=== PATIENT | male | born 1980 | race Caucasian/White ===

== ENCOUNTER → 2016-10-05 | Outpatient (CLI) | payer BC ==
--- NOTE | 2016-10-05 08:19 | DIAGNOSTIC IMAGING REPORT ---
MRI left ankle LEFT LOWER EXT JOINT WITHOUT CLINICAL HISTORY: LEFT ANKLE PAIN pain TECHNIQUE: Multiaxial MRI acquisition COMPARISON STUDY: None FINDINGS: Subtle increase in signal the central aspect of the Achilles tendon with a trace amount of surrounding edema. This is also associated with a trace amount of bone marrow edema of the posterior lateral aspect of the calcaneus. This presumably is a stress related phenomenon. Signal characteristics of all remaining osseous structures are unremarkable. Major collateral ligament structures are intact. There is no significant joint effusion. Bony alignment is anatomic. Structures the plantar fascia appear unremarkable. IMPRESSION: 1. Mild Achilles tendinopathy. 2. Mild reactive bone marrow edema posterior lateral aspect of the calcaneus. 3. Study is otherwise negative Electronically signed by: Raji Chadwick M.D. 10/05/2016 8:18 AM Dictated Date/Time: 10/05/2016 8:08 AM
== END | disposition home or self-care (01) ==
LOC: C.MRIBC 06:28
PROVIDERS: ATTEND Orthopaedic Surgery
DX: M25.572 Pain in left ankle and joints of left foot (principal)

== ENCOUNTER → 2018-02-17 | Outpatient (CLI) | payer BC ==
--- NOTE | 2018-02-17 07:53 | DIAGNOSTIC IMAGING REPORT ---
R KNEE 1 OR 2 VIEWS ROUTINE CLINICAL HISTORY: M25.561 COMPARISON: None. DISCUSSION: The bones and joint spaces appear intact. There is no evidence of fracture, dislocation or bony disease. There is no evidence for soft tissue swelling. IMPRESSION: Negative study. The above report was generated using voice recognition software. It may contain grammatical, syntax or spelling errors. Electronically signed by: Raji Chadwick M.D. 02/17/2018 7:51 AM Dictated Date/Time: 02/17/2018 7:23 AM
== END | disposition home or self-care (01) ==
LOC: C.RAD 06:57
PROVIDERS: ATTEND Chiropractor
DX: M25.561 Pain in right knee (principal); M25.461 Effusion, right knee

== ENCOUNTER → 2018-03-03 | Outpatient (CLI) | payer BC ==
--- NOTE | 2018-03-03 07:37 | DIAGNOSTIC IMAGING REPORT ---
RIGHT KNEE MRI HISTORY: Right knee pain. COMPARISON STUDY: Right knee 02/17/2018. TECHNIQUE: Multiplanar multisequence MRI of the right knee was performed according to standard department protocol without the use of contrast. FINDINGS: Menisci: The medial and lateral menisci are intact. Ligaments: The PCL, MCL, and LCL are intact. There is a multiseptated cyst lying posterior to and abutting the ACL. This measures approximately 3.3 x 1.1 cm. This cyst appears to arise from from the ACL fibers best seen on axial image 18 of 36.. Therefore, this is consistent with an ACL ganglion cyst. No evidence for acute or full-thickness ACL tear. Extensor mechanism: The quadriceps tendon and patellar ligament are intact. Articular cartilage and bone: Mild cartilage thinning within the central weightbearing portion of the medial femoral condyle. There is also mild corresponding and a cartilage fissure within the mid trochlea. Normal marrow signal intensity seen throughout the visualized osseous structures. No fracture or dislocation. Joint effusion: Trace. Soft tissues: No significant popliteal cyst. IMPRESSION: 1. ACL ganglion cyst measuring 3.3 x 1.1 cm. 2. Trace knee effusion. 3. Mild chondromalacia. Electronically signed by: Stanley Fontaine M.D. 03/03/2018 7:35 AM Dictated Date/Time: 03/03/2018 7:24 AM
== END | disposition home or self-care (01) ==
LOC: C.MRI 06:04
PROVIDERS: ATTEND Orthopaedic Surgery
DX: S83.249A Other tear of medial meniscus, current injury, unspecified knee, initial encounter (principal); X58.XXXA Exposure to other specified factors, initial encounter; M25.562 Pain in left knee; M67.461 Ganglion, right knee

== ENCOUNTER 2021-11-10 03:06 | Observation (INO) ==
[2021-11-10] MEDS ORDERED: NITROGLYCERIN SL 0.4 MG/TAB TAB ONE (03:16)
[2021-11-10] MEDS ORDERED: NITROGLYCERIN SL 0.4 MG/TAB TAB SL PRN ×2 (03:16→07:59)
--- NOTE | 2021-11-10 03:22 | Emergency Department Note ---
History of Present Illness General Chief complaint: Chest Pain Stated complaint: SEIZURE, CHEST PAIN, Time Seen by Provider: 11/10/21 03:15 Source: patient and EMS Home Medications Medication Instructions Recorded Confirmed Type None (Patient States No Home Meds) #0 05/03/11 History Allergies Allergy/AdvReac Type Severity Reaction Status Date / Time No Known Allergies Allergy Unverified 01/11/13 09:38 Past Med/Surg History Social History Smoking Status: Never smoker Feels Safe at Home: Yes Review of Systems A total of 10 systems reviewed and were otherwise negative Constitutional: no fever Respiratory: + dyspnea; no cough Cardiovascular: + chest pain and + radiating jaw, neck or arm pain Neurologic: + tingling and + paresthesia Physical Exam Vital Signs Vital Signs - 24 hr 11/10/21 03:00 11/10/21 03:27 11/10/21 03:28 Temperature 36.6 C Temperature Source Oral Pulse Rate 85 Pulse Rate [Right Finger] 82 Respiratory Rate 16 18 Blood Pressure 138/84 Blood Pressure [Right Arm] 132/84 Blood Pressure Mean 102 Blood Pressure Mean [Right Arm] 100 Blood Pressure Position Sitting Blood Pressure Position [Right Arm] Sitting Pulse Oximetry 97 97 97 Oxygen Delivery Method Room Air Room Air Room Air Sepsis Recent Fever Within 48 Hours No Sepsis New/Unexplained Change in Mental Status No Sepsis Action Taken by Nursing No Action Required 11/10/21 04:30 Temperature Temperature Source Pulse Rate Pulse Rate [Right Finger] 77 Respiratory Rate 18 Blood Pressure Blood Pressure [Right Arm] 128/83 Blood Pressure Mean Blood Pressure Mean [Right Arm] 98 Blood Pressure Position Blood Pressure Position [Right Arm] Lying Pulse Oximetry 98 Oxygen Delivery Method Room Air Sepsis Recent Fever Within 48 Hours Sepsis New/Unexplained Change in Mental Status Sepsis Action Taken by Nursing VITAL SIGNS - Vital signs and nursing notes were reviewed. GENERAL -41-year-old male appearing his stated age who is in no acute distress. Communicates well with provider and answers questions appropriately. SKIN - Without rashes. HEAD - NC/AT. EYES - PERRL with EOMI bilaterally. Sclera anicteric. Palpebral conjunctiva pink and moist with no injection noted. EARS - No deformities of external structures noted on gross examination heladio aterally. NOSE - Midline and without cyanosis. No epistaxis or purulent drainage noted. Septum midline without deviation or septal hematoma noted. MOUTH/OROPHARYNX - Without perioral cyanosis. Buccal mucosa pink and moist and without leukoplakia. Tongue midline with equal elevation of palate bilaterally. No tonsillar hypertrophy, erythema, or exudates noted. [] dentition noted. NECK - Neck with FROM. Supple to palpation. LUNGS - Chest wall symmetric without accessory muscle use, intercostals r etractions, or central cyanosis. Normal vesicular breath sounds CTA B/L. No wheezes, rales, or rhonchi appreciated. CARDIAC - RRR with S1/S2. No murmur, rubs, or gallops appreciated. ABDOMEN - Abdominal contour soft without pulsations or visible masses. BS normoactive all four quadrants. No tenderness, palpable masses, hepatosplenomegaly, or ascites noted. EXTREMITIES - No clubbing or peripheral cyanosis. No pretibial edema present. . +5/5 strength noted in UE/LE bilaterally. NEUROLOGIC - Cranial nerves II through XII grossly intact. GCS 15, NIH 0 PSYCH - A&Ox3 and cooperates fully with examiner. Pt is very pleasant and interacts well with examiner. Course Administered Medications Nitroglycerin (Nitroglycerin Sl 0.4 Mg/Tab Tab) 0.4 mg SL UD PRN PRN Reason: Chest Pain Stop: 12/10/21 03:15 Last Admin: 11/10/21 03:19 Dose: 0.4 mg Documented by: [id number] Discontinued Medications Nitroglycerin (Nitroglycerin Sl 0.4 Mg/Tab Tab) Confirm Administered Dose 0.4 mg .ROUTE .STK-MED ONE Stop: 11/10/21 03:17 Last Admin: 11/10/21 03:18 Dose: Not Given Documented by: [id number] Medical Decision Making Medical Records Attestation: I reviewed the patient's medical records. Home Medications Current Medication List: was personally reviewed by me Laboratory Data Attestation: I reviewed the patient's lab results. Result diagrams: 11/10/21 03:18 11/10/21 03:18 Lab Results 11/10/21 11/10/21 11/10/21 Range/Units 03:18 03:18 03:18 WBC 12.19 H (4.8-10.8) K/uL RBC 5.38 (4.7-6.1) M/uL Hgb 15.5 (14.0-18.0) g/dL POC Hgb (14.0-18.0) g/dl Hct 46.5 (42-52) % POC Hct (42-52) % MCV 86.4 (80-100) fL MCH 28.8 (25-34) pg MCHC 33.3 (32-36) g/dL RDW Std Deviation 42.2 (36.4-46.3) fL RDW Coeff of Tyson 13.3 (11.5-14.5) % Plt Count 282 (130-400) K/uL MPV 10.3 (7.4-10.4) fL Immature Gran % (Auto) 0.3 % Neut % (Auto) 77.7 % Lymph % (Auto) 9.8 % [place] % (Auto) 8.5 % Eos % (Auto) 3.5 % Baso % (Auto) 0.2 % Neut # (Auto) 9.45 H (1.4-6.5) K/uL Lymph # (Auto) 1.20 (1.2-3.4) K/uL [place] # (Auto) 1.04 H (0.11-0.59) K/uL Eos # (Auto) 0.43 (0-0.5) K/uL Baso # (Auto) 0.03 (0-0.2) K/uL Immature Gran # (Auto) 0.04 H (0.00-0.02) K/uL PT (9.0-12.0) Seconds INR (0.9-1.1) APTT (21.0-31.0) Seconds PTT Ratio D-Dimer (0-500) ug/L FEU POC Sodium (135-144) mmol/L Sodium 137 (136-145) mmol/L POC Potassium (3.3-5.0) mmol/L Potassium 4.0 (3.5-5.1) mmol/L POC Chloride (101-112) mmol/L Chloride 104 (98-107) mmol/L Carbon Dioxide 27 (21-32) mmol/L POC Total CO2 (24-31) mmol/L Anion Gap 6 (3-11) POC Anion Gap (16-25) mmol/L POC BUN (7-18) mg/dl BUN 11 (6-23) mg/dl Creatinine 1.10 (0.6-1.4) mg/dl POC Creatinine (0.6-1.3) mg/dl Est Cr Clr Drug Dosing 118.9 ml/min Est GFR ( Amer) 95.5 ml/min Est GFR (Non-Af Amer) 82.4 ml/min BUN/Creatinine Ratio 10.0 (10-20) Glucose 98 (70-99(Fasting)) mg/dl POC Glucose (other) (70-99) mg/dl Calcium 9.1 (8.5-10.1) mg/dl POC Ioniz Calcium Jm (1.12-1.32) mmol/l Total Bilirubin 0.5 (0.2-1.0) mg/dl AST 14 (13-39) U/L ALT 17 (7-52) U/L Alkaline Phosphatase 64 (34-104) U/L Troponin I High Sens 3.2 (0-20) pg/ml Total Protein 6.6 (6.0-8.3) gm/dl Albumin 4.1 (3.4-5.0) gm/dl Globulin 2.5 (2.5-4.0) gm/dl Albumin/Globulin Ratio 1.6 (0.9-2) SARS-CoV-2, RNA, NAAT (NEGATIVE) 11/10/21 11/10/21 11/10/21 Range/Units 03:18 03:22 03:43 WBC (4.8-10.8) K/uL RBC (4.7-6.1) M/uL Hgb (14.0-18.0) g/dL POC Hgb 15.3 (14.0-18.0) g/dl Hct (42-52) % POC Hct 45 (42-52) % MCV (80-100) fL MCH (25-34) pg MCHC (32-36) g/dL RDW Std Deviation (36.4-46.3) fL RDW Coeff of Tyson (11.5-14.5) % Plt Count (130-400) K/uL MPV (7.4-10.4) fL Immature Gran % (Auto) % Neut % (Auto) % Lymph % (Auto) % [place] % (Auto) % Eos % (Auto) % Baso % (Auto) % Neut # (Auto) (1.4-6.5) K/uL Lymph # (Auto) (1.2-3.4) K/uL [place] # (Auto) (0.11-0.59) K/uL Eos # (Auto) (0-0.5) K/uL Baso # (Auto) (0-0.2) K/uL Immature Gran # (Auto) (0.00-0.02) K/uL PT 11.0 (9.0-12.0) Seconds INR 1.0 (0.9-1.1) APTT 25.3 (21.0-31.0) Seconds PTT Ratio 0.9 D-Dimer 240 (0-500) ug/L FEU POC Sodium 140 (135-144) mmol/L Sodium (136-145) mmol/L POC Potassium 4.0 (3.3-5.0) mmol/L Potassium (3.5-5.1) mmol/L POC Chloride 102 (101-112) mmol/L Chloride (98-107) mmol/L Carbon Dioxide (21-32) mmol/L POC Total CO2 26 (24-31) mmol/L Anion Gap (3-11) POC Anion Gap 17.0 (16-25) mmol/L POC BUN 11 (7-18) mg/dl BUN (6-23) mg/dl Creatinine (0.6-1.4) mg/dl POC Creatinine 1.0 (0.6-1.3) mg/dl Est Cr Clr Drug Dosing ml/min Est GFR ( Amer) ml/min Est GFR (Non-Af Amer) ml/min BUN/Creatinine Ratio (10-20) Glucose (70-99(Fasting)) mg/dl POC Glucose (other) 101 H (70-99) mg/dl Calcium (8.5-10.1) mg/dl POC Ioniz Calcium Jm 1.20 (1.12-1.32) mmol/l Total Bilirubin (0.2-1.0) mg/dl AST (13-39) U/L ALT (7-52) U/L Alkaline Phosphatase (34-104) U/L Troponin I High Sens (0-20) pg/ml Total Protein (6.0-8.3) gm/dl Albumin (3.4-5.0) gm/dl Globulin (2.5-4.0) gm/dl Albumin/Globulin Ratio (0.9-2) SARS-CoV-2, RNA, NAAT NEGATIVE (NEGATIVE) Imaging Data Radiologist's Impression: CT HEAD: No prior examfor comparison. No ICH, mass effect or edema. No evidence of acute cortical stroke. Visualized sinuses and mastoid air cells are clear. No skull fracture. Radiologist: Patrizia Reyez MD ECG Data Attestation: I personally reviewed and interpreted this ECG as follows: Additional Comments: EKG interpreted by me normal sinus rhythm rate of 82 age-indeterminate inferior wall [place] there is a nonspecific ST-T change and lead to V3 there is no obvious reciprocal changes there is no significant ST segment elevation or depression there is a normal axis EKG #2 after nitro was given there is nonspecific ST-T change and lead to there is Q waves in lead III and aVF there is no obvious ST segment depression or reciprocal changes his rate of 75 normal axis MDM Narrative Call decision making differential diagnosis includes acute coronary syndrome angina unstable angina acute [place] acute seizure acute intracranial process, plan is to check labs EKG CT chest x-ray Impression & Plan Chest pain, Dizziness, Seizure-like activity Discharge Plan Visit Data Chief Complaint: Chest Pain Stated Complaint: SEIZURE, CHEST PAIN, ED Provider: Ulysses Page Discharge Problem: Chest pain, Dizziness, Seizure-like activity Patient Disposition: Being Evaluated by Hospitalist Forms Stand Alone Forms: My [employer] Prescriptions Prescriptions: No Action None (Patient States No Home Meds) . Qty: 0 RF: 0 Referrals Referrals: Timothy Schmitt MD [Physician] -
[2021-11-10 03:37] LABS: Basophils # (auto) 0.03 K/uL (0-0.2); Basophils % (auto) 0.2 %; Eosinophils # (auto) 0.43 K/uL (0-0.5); Eosinophils % (auto) 3.5 %; Hematocrit (blood only) 46.5 % (42-52); Hemoglobin 15.5 g/dL (14.0-18.0); Immature Granulocytes # (auto) 0.04 K/uL (0.00-0.02); Immature Granulocytes % (auto) 0.3 %; Lymphocytes % (auto) 9.8 %; Mean Corpuscular Hemoglobin 28.8 pg (25-34); Mean Corpuscular Hgb Conc 33.3 g/dL (32-36); Mean Corpuscular Volume 86.4 fL (80-100); Mean Platelet Volume 10.3 fL (7.4-10.4); Monocytes # (auto) 1.04 K/uL (0.11-0.59); Monocytes % (auto) 8.5 %; Neutrophils # (auto) 9.45 K/uL (1.4-6.5); Neutrophils % (auto) 77.7 %; Platelet Count 282 K/uL (130-400); RDW Coefficient of Variation 13.3 % (11.5-14.5); RDW Standard Deviation 42.2 fL (36.4-46.3); Red Blood Count 5.38 M/uL (4.7-6.1); White Blood Count 12.19 K/uL (4.8-10.8)
[2021-11-10 03:39] LABS: iSTAT Hemoglobin 15.3 g/dl (14.0-18.0); iSTAT Ionized Calcium 1.2 mmol/l (1.12-1.32)
[2021-11-10 03:47] LABS: D Dimer 240 ug/L FEU (0-500); Partial Thromboplastin Ratio 0.9; Partial Thromboplastin Time 25.3 Seconds (21.0-31.0)
[2021-11-10 03:59] LABS: Albumin Globulin Ratio 1.6 (0.9-2); Albumin Level 4.1 gm/dl (3.4-5.0); Bilirubin,Total 0.5 mg/dl (0.2-1.0); Calcium 9.1 mg/dl (8.5-10.1); Creatinine Clr Calc Pharmacy 118.9 ml/min; Est GFR (African American) 95.5 ml/min; Est GFR (Non-African American) 82.4 ml/min; Globulin 2.5 gm/dl (2.5-4.0); Total Protein 6.6 gm/dl (6.0-8.3)
[2021-11-10] MEDS ORDERED: ASPIRIN 81 MG CHEW PO STA (04:54)
[2021-11-10] MEDS ORDERED: OPTIRAY 320 125ml IV ONE ×2 (05:57→12:26)
--- NOTE | 2021-11-10 06:01 | History & Physical Report ---
Date of Service November 10, 2021 Assessment & Plan (1) Chest pain: Plan: 41yo male with no significant past medical history presenting with several days of chest pain, acutely worsening this evening with associated SOB/diaphoresis/nausea as well as seizure-like episode with residual left sided weakness. Patient has family history of premature CAD, otherwise no significant risk factors for CAD. HS-troponin at time 0 within normal limits at 3.2, repeat 2h troponin pending. EKG with possible old inferior [place]. -Telemetry monitoring -Continue to trend troponin q 6 hours -Check HgbA1C -Check lipid panel -Continue ASA 81mg daily for now -Check 2D echo -Nitro PRN -Morphine PRN (2) Seizure-like activity: Plan: Witnesses report patient having difficulty speaking as well as repetitive lip- smacking and right hand movement. Possible post-ictal confusion, patient repeating himself and somewhat slow to respond. Possible Tyler paralysis with residual left sided weakness. -Maintain seizure precautions -Check MRI brain -Check Mg, PO4 and TSH -Neurology consultation appreciated -Consider EEG (3) Left-sided weakness: Plan: Patient with left sided weakness. Ddx to include TIA, CVA, possible seizure with Tyler paralysis. CT head negative for acute hemorrhage -Check CTA Head and Neck -Check MRI brain -Check 2D echo -Neuro checks, NIHSS per protocol -Dysphagia screening per protocol -PT/OT evaluation appreciated -Neurology consultation appreciated Plan: F/E/N -Heplock. Check Mg and PO4 and replete if needed. Heart healthy diet as tolerated Ppx - Low risk for DVT Code -Full per discussion with patient Dispo - Observation to PCU for continued workup History of Present Illness Chief Complaint: chest pain, left sided weakness Primary Care Provider: NO PCP Thad Ruiz is a 41yo male with no significant past medical history presenting with left sided chest pain and possible seizure activity. Patient reports intermittent left sided chest pain with radiation to the jaw, left arm and between the shoulder blades for the last several days. Pain is non-exertional. Reproducible with movement and position. Also with headache for the last two days. Patient works as a [employer] He was at work tonight and didn't feel well. Several of his colleagues said he looked pale and wasn't acting himself. He had ongoing chest pain with left arm weakness as well as generalized weakness and fatigue. Around 01:[address] when his chest pain worsened - sharp in nature, 10/10 in severity with radiation to his jaw, left arm and bilateral shoulders. He had associated diaphoresis, dizziness, SOB and nausea. He also reports seeing double and brief inability to speak. He pulled over and tried to rest to see if the symptoms would resolve. EMS was called when colleagues couldn't get ahold of him- as noted by EMS as well as colleagues at the scene - patient reportedly was having difficulty communicating, unable to form words. Speech was slurred an nonsensical. He was also noted to be lip smacking and having repetitive shaking motion with his right hand. Patient had a brief loss of consciousness for appx 2 minutes. Presently he states he feels slow to respond. He feels weakness, numbness and tingling of the LUE as well as LLE. is at bedside and reports that he is repeating himself and seems still slightly confused. Patient is active at home. Denies history of exertional chest discomfort or dyspnea. He has no known history of cardiac disease. He does have a family history of premature CAD in his mother as well as maternal grandmother with MIs in their 40's. Patient has no additional cardiac risk factors. He was recently on Sertraline which was discontinued appx 1 month ago by taper. Recent maxillary tooth infection for which he took PCN. No additional complaints at this time. In the ER patient afebrile, HD stable. ER Course: Nitro 0.4mg SL, ASA 324mg Allergies Allergy/AdvReac Type Severity Reaction Status Date / Time No Known Allergies Allergy Unverified 01/11/13 09:38 Home Medications Medication Instructions Recorded Confirmed Type None (Patient States No Home Meds) #0 05/03/11 History Past Med/Surg History Medical History (Updated 11/10/21 @ 05:50 by Fouzia Harmon DO) No significant past medical history Surgical History (Updated 11/10/21 @ 05:45 by Fouzia Harmon DO) History of surgery on wrist Family History (Updated 11/10/21 @ 05:45 by Fouzia Harmon DO) Other Coronary heart disease Hypertension Social History (Updated 11/10/21 @ 05:46 by Fouzia Harmon DO) Smoking Status: Never smoker Hx Alcohol Use: Yes (rarely, social use) Hx Substance Use: No Feels Safe at Home: Yes Review of Systems Review of Systems: All systems reviewed & are unremarkable except as noted in HPI & below Physical Exam Physical Exam: General: patient appears tired, NAD, non-toxic in appearance, AA&O x 4 Skin: warm, dry, intact, no rashes or lesions HEENT: NC/AT, PERRL, EOMI, anicteric sclera, conjunctiva without injection, external ear normal to inspection and nontender, nares patent, moist mucus membranes, dentition intact, no oropharyngeal lesions, neck supple, trachea midline, no LAD, no thyromegaly, no JVD Heart: +S1/S2, regular, no m/r/g, +tenderness with palpation of left chest wall, ribs, +tenderness with palpation of left occipital musculature, paraspinals, trapezius and left arm Lungs: equal air entry bilaterally, no rales/rhonchi/wheezes Abd: +BS, soft, NT/ND, no masses/organomegaly/ascites Ext: warm, 2+ pulses in UE/LE bilaterally, no clubbing/cyanosis or edema Neuro: AA&O x 4, speech clear and appropriate, no facial droop, CN II-XII intact with exception of diminished hearing in left ear, sensation to light touch diminished in LUE, LLE, MS 4/5 in LUE/LLE, 5/5 in RUE/RLE Results & Data Results & Data ([facility]) Vital Signs (Past 12 Hours) Vital Signs Temp Pulse Pulse Resp BP BP Pulse Ox 11/10/21 04:30 77 18 128/83 98 11/10/21 03:28 82 18 132/84 97 11/10/21 03:27 97 11/10/21 03:00 36.6 C 85 16 138/84 97 Laboratory Results Laboratory Results WBC 12.19 K/uL (4.8-10.8) H 11/10/21 03:18 RBC 5.38 M/uL (4.7-6.1) 11/10/21 03:18 Hgb 15.5 g/dL (14.0-18.0) 11/10/21 03:18 POC Hgb 15.3 g/dl (14.0-18.0) 11/10/21 03:22 Hct 46.5 % (42-52) 11/10/21 03:18 POC Hct 45 % (42-52) 11/10/21 03:22 MCV 86.4 fL (80-100) 11/10/21 03:18 MCH 28.8 pg (25-34) 11/10/21 03:18 MCHC 33.3 g/dL (32-36) 11/10/21 03:18 RDW Std Deviation 42.2 fL (36.4-46.3) 11/10/21 03:18 RDW Coeff of Tyson 13.3 % (11.5-14.5) 11/10/21 03:18 Plt Count 282 K/uL (130-400) 11/10/21 03:18 MPV 10.3 fL (7.4-10.4) 11/10/21 03:18 Immature Gran % (Auto) 0.3 % 11/10/21 03:18 Neut % (Auto) 77.7 % 11/10/21 03:18 Lymph % (Auto) 9.8 % 11/10/21 03:18 [place] % (Auto) 8.5 % 11/10/21 03:18 Eos % (Auto) 3.5 % 11/10/21 03:18 Baso % (Auto) 0.2 % 11/10/21 03:18 Neut # (Auto) 9.45 K/uL (1.4-6.5) H 11/10/21 03:18 Lymph # (Auto) 1.20 K/uL (1.2-3.4) 11/10/21 03:18 [place] # (Auto) 1.04 K/uL (0.11-0.59) H 11/10/21 03:18 Eos # (Auto) 0.43 K/uL (0-0.5) 11/10/21 03:18 Baso # (Auto) 0.03 K/uL (0-0.2) 11/10/21 03:18 Immature Gran # (Auto) 0.04 K/uL (0.00-0.02) H 11/10/21 03:18 PT 11.0 Seconds (9.0-12.0) 11/10/21 03:18 INR 1.0 (0.9-1.1) 11/10/21 03:18 APTT 25.3 Seconds (21.0-31.0) 11/10/21 03:18 PTT Ratio 0.9 11/10/21 03:18 D-Dimer 240 ug/L FEU (0-500) 11/10/21 03:18 POC Sodium 140 mmol/L (135-144) 11/10/21 03:22 Sodium 137 mmol/L (136-145) 11/10/21 03:18 POC Potassium 4.0 mmol/L (3.3-5.0) 11/10/21 03:22 Potassium 4.0 mmol/L (3.5-5.1) 11/10/21 03:18 POC Chloride 102 mmol/L (101-112) 11/10/21 03:22 Chloride 104 mmol/L (98-107) 11/10/21 03:18 Carbon Dioxide 27 mmol/L (21-32) 11/10/21 03:18 POC Total CO2 26 mmol/L (24-31) 11/10/21 03:22 Anion Gap 6 (3-11) 11/10/21 03:18 POC Anion Gap 17.0 mmol/L (16-25) 11/10/21 03:22 POC BUN 11 mg/dl (7-18) 11/10/21 03:22 BUN 11 mg/dl (6-23) 11/10/21 03:18 Creatinine 1.10 mg/dl (0.6-1.4) 11/10/21 03:18 POC Creatinine 1.0 mg/dl (0.6-1.3) 11/10/21 03:22 Est Cr Clr Drug Dosing 118.9 ml/min 11/10/21 03:18 Est GFR ( Amer) 95.5 ml/min 11/10/21 03:18 Est GFR (Non-Af Amer) 82.4 ml/min 11/10/21 03:18 BUN/Creatinine Ratio 10.0 (10-20) 11/10/21 03:18 Glucose 98 mg/dl (70-99(Fasting)) 11/10/21 03:18 POC Glucose (other) 101 mg/dl (70-99) H 11/10/21 03:22 Calcium 9.1 mg/dl (8.5-10.1) 11/10/21 03:18 POC Ioniz Calcium Jm 1.20 mmol/l (1.12-1.32) 11/10/21 03:22 Total Bilirubin 0.5 mg/dl (0.2-1.0) 11/10/21 03:18 AST 14 U/L (13-39) 11/10/21 03:18 ALT 17 U/L (7-52) 11/10/21 03:18 Alkaline Phosphatase 64 U/L (34-104) 11/10/21 03:18 Troponin I High Sens 3.2 pg/ml (0-20) 11/10/21 03:18 Total Protein 6.6 gm/dl (6.0-8.3) 11/10/21 03:18 Albumin 4.1 gm/dl (3.4-5.0) 11/10/21 03:18 Globulin 2.5 gm/dl (2.5-4.0) 11/10/21 03:18 Albumin/Globulin Ratio 1.6 (0.9-2) 11/10/21 03:18 SARS-CoV-2, RNA, NAAT NEGATIVE (NEGATIVE) 11/10/21 03:43 ECG Additional Comments: EKG with NSR at 75bpm, normal axis, OU=322, QRS=96, AOw=238, Q waves presnet in inferior leads III, aVF, nonspecific ST changes present, no acute EMILY Code Status & VTE Plan VTE Prophylaxis Plan VTE Prophylaxis will be ordered: Yes PG Care Time/CCT Total # of Minutes Spent Total Time Spent with Patient: Total time spent is greater than 50% in coordination of care (as documented) at patient's floor/unit and/or counseling patient: Coding Level of Care Code INT OBSERVATION CARE 50M LVL 2 Diagnoses Chest pain R07.9 Chest pain type: unspecified Seizure-like activity R56.9 Left-sided weakness R53.1 (1) Chest pain Chest pain type: unspecified Qualified Code(s): R07.9 - Chest pain, unspecified
--- NOTE | 2021-11-10 07:08 | CT Scan Report ---
HEAD CT NONCONTRAST CT DOSE: 614.27 mGy.cm HISTORY: seizure TECHNIQUE: Multiaxial CT images of the head were performed without the use of intravenous contrast. A utomated exposure control was utilized for this study. A dose lowering technique was utilized adheri ng to the principles of ALARA. Comparison: None. Findings: The paranasal sinuses and mastoid air cells are clear. The calvarium and skull base are int act. The ventricles and sulci are within normal limits. There is no mass, hematoma, midline shift, or acute infarct. Impression: No acute intracranial abnormality. ACT 112: Negative or not required by law. Electronically signed by: Stanley Fontaine M.D. 11/10/2021 7:07 AM
--- NOTE | 2021-11-10 07:14 | CT Scan Report ---
HEAD & NECK CTA HISTORY: left sided weakness TECHNIQUE: Multiaxial CT images of the head were performed following the intravenous administration o f contrast to evaluate the major cerebral vessels. Multiaxial CT images of the neck were also perform ed following the intravenous administration of contrast to evaluate the major cervical vessels. Maxim um intensity projection images were also obtained. A dose lowering technique was utilized adhering to the principles of ALARA. COMPARISON: Head CT 11/10/2021. FINDINGS: There is no mass, hematoma, midline shift, or acute infarct. Visualized intracranial internal carotid arteries, distal vertebral arteries, and basilar artery are widely patent. There is no significant s tenosis, occlusion, or aneurysm seen within the bilateral ACAs, MCAs, or pan shover. The major dural venous sinuses are patent. The aortic arch and proximal great vessels are widely patent. There is no significant stenosis, occ lusion, or dissection identified within the bilateral common carotid, internal carotid, or vertebral arteries. IMPRESSION: 1. No significant stenosis, occlusion, or aneurysm within the [place]. 2. No significant stenosis, occlusion, or dissection identified within the carotid or vertebral arter ies. ACT 112: Negative or not required by law. Electronically signed by: Stanley Fontaine M.D. 11/10/2021 7:12 AM
--- NOTE | 2021-11-10 07:14 | CT Scan Report ---
HEAD & NECK CTA HISTORY: left sided weakness TECHNIQUE: Multiaxial CT images of the head were performed following the intravenous administration o f contrast to evaluate the major cerebral vessels. Multiaxial CT images of the neck were also perform ed following the intravenous administration of contrast to evaluate the major cervical vessels. Maxim um intensity projection images were also obtained. A dose lowering technique was utilized adhering to the principles of ALARA. COMPARISON: Head CT 11/10/2021. FINDINGS: There is no mass, hematoma, midline shift, or acute infarct. Visualized intracranial internal carotid arteries, distal vertebral arteries, and basilar artery are widely patent. There is no significant s tenosis, occlusion, or aneurysm seen within the bilateral ACAs, MCAs, or data warehousing manager. The major dural venous sinuses are patent. The aortic arch and proximal great vessels are widely patent. There is no significant stenosis, occ lusion, or dissection identified within the bilateral common carotid, internal carotid, or vertebral arteries. IMPRESSION: 1. No significant stenosis, occlusion, or aneurysm within the [place]. 2. No significant stenosis, occlusion, or dissection identified within the carotid or vertebral arter ies. ACT 112: Negative or not required by law. Electronically signed by: Stanley Fontaine M.D. 11/10/2021 7:12 AM
[2021-11-10] MEDS ORDERED: ONDANSETRON INJ 2 MG/ML 2 ML VIAL IV PRN (07:59)
[2021-11-10] MEDS ORDERED: MoRPHine SULFATE 2 MG/ML CARP IV PRN (07:59)
[2021-11-10] MEDS ORDERED: ACETAMINOPHEN 325 MG TAB PO PRN (07:59)
--- NOTE | 2021-11-10 09:05 | XRay Report ---
XR chest 1V portable CLINICAL HISTORY: Atypical chest pain TECHNIQUE: Single frontal radiograph of the chest was obtained. Comparison: None available at the time of this dictation. FINDINGS: No lines and tubes are seen. The cardiomediastinal silhouette is normal. Lungs are underinflated but clear. No evidence of pleural effusion or pneumothorax. IMPRESSION: No acute chest disease. ACT 112: Negative or not required by law. Electronically signed by: Fidencio Jose M.D. 11/10/2021 9:04 AM
--- NOTE | 2021-11-10 09:24 | Neurology Consultation ---
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 Patient's clinical presentation is worrisome for stroke or seizure although possibly occurring in the context of an acute cardiovascular event. The left- sided weakness would potentially localized to the right cerebral hemisphere or possibly brainstem. The significance of the left hearing loss is uncertain at this time. The reported seizure-like activity would suggest automatisms potentially suggesting complex partial seizures followed by secondary generalization. Localization here would seem to suggest the left cerebral hemisphere (repetitive right hand shaking). Thus, there is some localization i ncongruity between his current examination findings and reported seizure-like activity. Patient will need an MRI of the brain and EEG. I would hold off on loading with an anticonvulsant at this point in time. However, if he were to have another episode would load with Keppra 1 g IV. Additional cardiovascular work-up may be needed. Consider CT angiography of the chest. (PE, aortic dissection?) Echocardiography already ordered. If the above evaluations are unremarkable, would consider obtaining a lumbar puncture to further exclude subarachnoid hemorrhage or possibly meningoencephalitis. [facility] Informed me that the patient is in the process of being transferred to the [facility] service at this point in time. 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 He then developed blurry vision, and inability to speak. He pulled over. Colleagues on the radio were unable to get a hold of him, EMS was summoned, found to have difficulty communicating, difficulty forming words, speech slurred, nonsensical. Observed to have seizure-like activity as well characterized by lipsmacking, repetitive shaking motion of the right hand followed by brief loss of consciousness, about 2 minutes, may have had urinary incontinence, no tongue bite. Complains of persistent mild left-sided weakness, arm and leg. Patient spouse at bedside. Reports that he was not feeling very well prior to the above episode, had been complaining of headache most of the day. No fevers or other flulike symptoms, no recent illness or vaccinations. Patient is currently mildly lethargic, continues to exhibit mild left-sided weakness. He has never had a previous similar episode. No known history of stroke, TIA, seizure or syncope. No known history of cardiopulmonary disease. Initial lab evaluation fairly unrevealing. Very mild leukocytosis. No gross metabolic derangement. Normal glucose. High- sensitivity troponin normal. SARS-CoV-[address] of the chest, CTA of the head and neck, and CT of the head negative for obvious acute process. ECG normal sinus rhythm. Patient was admitted to the [facility] for further evaluation and management of chest pain, seizure-like activity, left-sided weakness. Additional testing has been ordered including echocardiography, brain MRI. No known family history of cerebral aneurysm, seizure disorder, or brain tumor. No history of alcohol or drug abuse. Allergies Allergy/AdvReac Type Severity Reaction Status Date / Time No Known Allergies Allergy Unverified 01/11/13 09:38 Home Medications Medication Instructions Recorded Confirmed Type None (Patient States No Home Meds) #0 05/03/11 History Patient History Medical History (Updated 11/10/21 @ 09:34 by Kp Malik MD) No significant past medical history Surgical History (Updated 11/10/21 @ 05:45 by Fouzia Harmon DO) History of surgery on wrist Family History (Updated 11/10/21 @ 05:45 by Fouzia Harmon DO) Other Coronary heart disease Hypertension Social History (Updated 11/10/21 @ 05:46 by Fouzia Harmon DO) Smoking Status: Never smoker Second Hand Exposure: No; Hx Alcohol Use: Yes Alcohol type: beer Hx Substance Use: No Preferred Language: Georgian Communication Ability: Impaired Sap Senior Developer Required: No Beliefs That Will Affect Care: None Current Living Situation: Family Feels Safe at Home: Yes Assistive Devices: None Review of Systems Constitutional: no fever and no chills Eyes: no blind spots and no diplopia Ear, Nose, Mouth, Throat: no ear pain and no hearing loss Respiratory: no cough and no dyspnea Cardiovascular: + chest pain; no palpitations Gastrointestinal: no constipation and no diarrhea/loose stools Genitourinary: no urinary incontinence or no urinary urgency Musculoskeletal: no muscle weakness and no muscle atrophy Integumentary: no rash and no lesions Neurologic: as per Subjective / HPI, + localized weakness, + loss of sensation and + seizure-like activity; no tremor(s) and no headache(s) Psychiatric: no behavioral changes, no depression, no abnormal sleep pattern and no anxiety Hematologic / Lymphatic: no easy bruising and no lymphadenopathy Exam (Neuro) Constitutional: well developed and well nourished; no acute distress Eyes: normal visual galloway by confrontation, PERRL, normal accommodation and EOM intact bilaterally; no fundoscopic abnormality, no nystagmus and no papil ledema Cardiovascular: Vessels: normal carotid upstroke; no carotid bruit Neurologic: Oriented to:: Person, Place and Time Memory: Short Term Intact and Remote Intact Attention: negative Span Intact or Concentration Intact Language: Naming Objects and Repeating Phrases Speech Fluency: negative Dysarthria Speech Aphasia: negative Aphasia Fund of Knowledge: Past History and Vocabulary Cranial Nerves: Normal II (Visual galloway full to confrontation, visual acuity normal), III, IV, (Pupils equal round reactive to light and accommodation, eye movements normal), V (Facial sensation intact), VII (There is no facial droop or weakness), IX, X (Palate elevates to midline), XI (Shoulder shrug intact) and XII (Tongue protrudes to midline); Abnorm VIII (diminished hearing left ear) Motor Strength: Hemiparesis (mild, poor movement initiation) Laterality: Left; negative Normal Lower Extremities, Normal Upper Extremities or Pronator Drift Motor Tone: Normal Lower Extremities and Normal Upper Extremities Muscle Bulk/Involuntary Movements: No Involuntary Movements; negative Muscle Atrophy Sensation: Proprioception Intact; negative Light Touch Intact, Pain/Temperature Intact or Vibration Intact Coordination: Finger-Nose Abnormal Laterality: Left and Heel-Stroud Abnormal Laterality: Left; negative Dysdiadochokinesia Deep Tendon Reflexes: Rt Triceps: 2+, Lt Triceps: 2+, Rt Biceps: 2+, Lt Biceps: 2+, Rt Brachioradialis: 2+, Lt Brachioradialis: 2+, Rt Patellar: 2+, Lt Patellar: 2+, Rt Ankle: 2+ and Lt Ankle: 2+ Special Tests: negative Babinski Present Details: Gait cannot be tested in the context of patient's current neurological/medical status. Patient did exhibit inconsistent weakness of the left lower facial musculature. Relative sensory loss for the left arm and leg. Mild weakness for the left arm and leg as well with poor movement initiation, mild left upper extremity pronator drift. Deep tendon reflexes symmetric, plantar responses both downgoing. No nuchal rigidity. He is modestly lethargic, mildly inattentive. Results & Data ([facility]) Vital Signs (Past 12 Hours) Vital Signs Temp Pulse Pulse Resp BP BP Pulse Ox 11/10/21 07:08 37.4 C 80 18 132/74 98 11/10/21 06:15 82 18 136/81 98 11/10/21 05:45 83 18 148/91 H 99 11/10/21 04:30 77 18 128/83 98 11/10/21 03:28 82 18 132/84 97 11/10/21 03:27 97 11/10/21 03:00 36.6 C 85 16 138/84 97 Laboratory Results WBC 12.19, hemoglobin 15.5, hematocrit 46.5, MCV 86.4, platelet count 282, sodium 140, potassium 137, BUN 11, creatinine 1.10, glucose 98, calcium 9.1, AST 14, ALT 17, high-sensitivity troponin 3.7, SARS-CoV-[address] Findings [address] of the head negative for hemorrhage or acute process. No obvious significant parenchymal abnormality observed. CT angiography of the head and neck completed as well, no significant vascular abnormality, no stenosis, occlusion, aneurysm, or dissection. I reviewed the images as well as the radiologist's interpretation of these tests and agree. Electrocardiogram reveals a normal sinus rhythm, 82 bpm. Coding Level of Care Code 32924 Initial Inpt Care Lvl 3 Diagnoses Seizure-like activity R56.9 Stroke-like symptoms R29.90
--- NOTE | 2021-11-10 10:58 | Electroencephalogram ---
EEG Procedure Note Date of Service November 10, 2021 Start / End Times Start Time: 10:17 AM End Time: 10:37 AM Referring Physician Kp Malik MD History Seizure-like episode Home Medication List Medication Instructions Recorded Confirmed Type None (Patient States No Home Meds) #0 05/03/11 History Inpatient Medication List Discontinued Medications Aspirin (Aspirin 81 Mg Chew) 324 mg PO NOW STA Stop: 11/10/21 04:55 Last Admin: 11/10/21 05:00 Dose: 324 mg Documented by: [id number] Ioversol (Optiray 320 125ml) 125 ml IV ONCE ONE Stop: 11/10/21 05:58 Last Admin: 11/10/21 05:57 Dose: 118 ml Documented by: [id number] Nitroglycerin (Nitroglycerin Sl 0.4 Mg/Tab Tab) Confirm Administered Dose 0.4 mg .ROUTE .STK-MED ONE Stop: 11/10/21 03:17 Last Admin: 11/10/21 03:18 Dose: Not Given Documented by: [id number] Nitroglycerin (Nitroglycerin Sl 0.4 Mg/Tab Tab) 0.4 mg SL UD PRN PRN Reason: Chest Pain Stop: 12/10/21 03:15 Last Admin: 11/10/21 03:19 Dose: 0.4 mg Documented by: [id number] Description This is a 21 electrode EEG with a single channel dedicated to limited EKG. The electrodes were placed in accordance with the International 10-20 system. There is a posterior dominant rhythm of 10 Hz which is symmetrically distributed and attenuates with eye opening. There is a normal anterior to posterior organization. Photic stimulation is unremarkable. Hyperventilation is not performed. There is a symmetric frontal beta rhythm. There is intermittent moderate amplitude 4-1/2 to 5 Hz left temporal slowing. There is intermittent movement artifact throughout the study. There are no epileptiform abnormalities. Interpretation Borderline abnormal awake/drowsy EEG with intermittent left temporal slowing. Would correlate with neuroimaging. No epileptiform abnormalities, however. Please see today's neurology consultation for further clinical correlation. [facility] EEG Procedure Codes Indication for Procedure (1) Seizure-like activity: Neurology Neurology: [id number] EEG include record awake & drowsy
--- NOTE | 2021-11-10 11:32 | XCELERA ---
[id number]
[2021-11-10 11:35] LABS: Chol HDL Ratio 3.6 (0-5); Magnesium 1.8 mg/dl (1.7-2.4); Phosphorus 2.6 mg/dl (2.5-4.9)
--- NOTE | 2021-11-10 11:39 | Cardiology Consultation ---
Date of Consultation November 10, 2021 Assessment & Plan (1) Stroke-like symptoms: (2) Left-sided weakness: (3) Chest pain: (4) Seizure-like activity: I agree the patient should have a CT angio of the chest to exclude aortic dissection however, he has minimal risk factors and no previous family history so I think it is unlikely especially in light negative CT angio of the neck and head. He is to have an MRI of the brain completed today. He should remain on a security monitor to exclude arrhythmia such as atrial fibrillation. His echocardiogram was a good study and unremarkable with a negative contrast study for shunting from an ASD or PFO. We will follow along with you during his hospital stay. 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 The patient is sedate and most of the information is taken from the medical record as well as his and brother who are in the room during my exam. He has been very healthy but over the past few days he has not been feeling well and has had intermittent chest and back discomfort. He presented with stroke like symptoms. Left-sided weakness and possible seizure activity. He has no prior history of heart disease. No history of hypertension or diabetes. There is a family history of early heart disease and possibly cholesterol. It is unknown if he has had high cholesterol. The patient's cardiac markers are negative. His EKG indicates a sinus rhythm with ST changes in the inferior leads most likely due to or early repolarization. An echocardiogram already completed with the report indicating no significant wall motion abnormalities or valvular heart disease. Allergies Allergy/AdvReac Type Severity Reaction Status Date / Time No Known Allergies Allergy Unverified 01/11/13 09:38 Home Medications Medication Instructions Recorded Confirmed Type None (Patient States No Home Meds) #0 05/03/11 History Patient History Medical History No significant past medical history Surgical History History of surgery on wrist Family History Other Coronary heart disease Hypertension Social History Smoking Status: Never smoker Second Hand Exposure: No; Hx Alcohol Use: Yes Alcohol type: beer Hx Substance Use: No Preferred Language: Occitan Communication Ability: Effective Patient Support Representative Required: No Beliefs That Will Affect Care: None marital status: Current Living Situation: Family How many Children do You have: 1 Feels Safe at Home: Yes Assistive Devices: None Review of Systems Review of Systems: Review of Systems: See HPI for pertinent positives. All other 10 point review of systems are negative. Physical Exam Physical Exam: General: no acute distress and stated age Head: normocephalic, no masses, lesions, tenderness or abnormalities Eyes: conjunctiva are pink and non-injected, sclera clear Neck: supple, no adenopathy, no bruits, normal jugular venous pulse, no h epatojugular reflux Chest: normal shape and normal respiratory effort Lungs: clear to auscultation and percussion Cardiac Exam: - regular rate & rhythm, no murmurs gallops or rubs - normal S1, normal S2 Pulses: 2(+) throughout Abdomen: abdomen soft, non-tender, no abnormal masses and no hepatosplenomegaly Musculoskeletal: no gait disturbance, no joint inflammation, no deforming arthritis Extremities: no edema and no cyanosis Neuro: grossly normal exam Results & Data ([facility]) Vital Signs (Past 12 Hours) Vital Signs Temp Pulse Pulse Resp BP BP BP 11/10/21 10:50 127/78 115/74 11/10/21 07:08 37.4 C 80 18 132/74 11/10/21 06:15 82 18 136/81 11/10/21 05:45 83 18 148/91 H 11/10/21 04:30 77 18 128/83 11/10/21 03:28 82 18 132/84 11/10/21 03:27 11/10/21 03:00 36.6 C 85 16 138/84 Pulse Ox 11/10/21 10:50 11/10/21 07:08 98 11/10/21 06:15 98 11/10/21 05:45 99 11/10/21 04:30 98 11/10/21 03:28 97 11/10/21 03:27 97 11/10/21 03:00 97 Laboratory Results Laboratory Results - last 24 hr 11/10/21 11/10/21 11/10/21 03:18 03:18 03:18 WBC 12.19 H RBC 5.38 Hgb 15.5 POC Hgb Hct 46.5 POC Hct MCV 86.4 MCH 28.8 MCHC 33.3 RDW Std Deviation 42.2 RDW Coeff of Tyson 13.3 Plt Count 282 MPV 10.3 Immature Gran % (Auto) 0.3 Neut % (Auto) 77.7 Lymph % (Auto) 9.8 Person % (Auto) 8.5 Eos % (Auto) 3.5 Baso % (Auto) 0.2 Neut # (Auto) 9.45 H Lymph # (Auto) 1.20 Person # (Auto) 1.04 H Eos # (Auto) 0.43 Baso # (Auto) 0.03 Immature Gran # (Auto) 0.04 H PT INR APTT PTT Ratio D-Dimer POC Sodium Sodium 137 POC Potassium Potassium 4.0 POC Chloride Chloride 104 Carbon Dioxide 27 POC Total CO2 Anion Gap 6 POC Anion Gap POC BUN BUN 11 Creatinine 1.10 POC Creatinine Est Cr Clr Drug Dosing 118.9 Est GFR ( Amer) 95.5 Est GFR (Non-Af Amer) 82.4 BUN/Creatinine Ratio 10.0 Glucose 98 POC Glucose (other) Estimat Average Glucose Hemoglobin A1c Calcium 9.1 POC Ioniz Calcium Jm Phosphorus Magnesium Total Bilirubin 0.5 AST 14 ALT 17 Alkaline Phosphatase 64 Troponin I High Sens 3.2 Total Protein 6.6 Albumin 4.1 Globulin 2.5 Albumin/Globulin Ratio 1.6 Triglycerides Cholesterol LDL Cholesterol, Calc VLDL Cholesterol, Calc HDL Cholesterol Cholesterol/HDL Ratio TSH SARS-CoV-2, RNA, NAAT 11/10/21 11/10/21 11/10/21 03:18 03:22 03:43 WBC RBC Hgb POC Hgb 15.3 Hct POC Hct 45 MCV MCH MCHC RDW Std Deviation RDW Coeff of Tyson Plt Count MPV Immature Gran % (Auto) Neut % (Auto) Lymph % (Auto) Person % (Auto) Eos % (Auto) Baso % (Auto) Neut # (Auto) Lymph # (Auto) Person # (Auto) Eos # (Auto) Baso # (Auto) Immature Gran # (Auto) PT 11.0 INR 1.0 APTT 25.3 PTT Ratio 0.9 D-Dimer 240 POC Sodium 140 Sodium POC Potassium 4.0 Potassium POC Chloride 102 Chloride Carbon Dioxide POC Total CO2 26 Anion Gap POC Anion Gap 17.0 POC BUN 11 BUN Creatinine POC Creatinine 1.0 Est Cr Clr Drug Dosing Est GFR ( Amer) Est GFR (Non-Af Amer) BUN/Creatinine Ratio Glucose POC Glucose (other) 101 H Estimat Average Glucose Hemoglobin A1c Calcium POC Ioniz Calcium Jm 1.20 Phosphorus Magnesium Total Bilirubin AST ALT Alkaline Phosphatase Troponin I High Sens Total Protein Albumin Globulin Albumin/Globulin Ratio Triglycerides Cholesterol LDL Cholesterol, Calc VLDL Cholesterol, Calc HDL Cholesterol Cholesterol/HDL Ratio TSH SARS-CoV-2, RNA, NAAT NEGATIVE 11/10/21 11/10/21 11/10/21 05:25 10:38 10:38 WBC RBC Hgb POC Hgb Hct POC Hct MCV MCH MCHC RDW Std Deviation RDW Coeff of Tyson Plt Count MPV Immature Gran % (Auto) Neut % (Auto) Lymph % (Auto) Person % (Auto) Eos % (Auto) Baso % (Auto) Neut # (Auto) Lymph # (Auto) Person # (Auto) Eos # (Auto) Baso # (Auto) Immature Gran # (Auto) PT INR APTT PTT Ratio D-Dimer POC Sodium Sodium POC Potassium Potassium POC Chloride Chloride Carbon Dioxide POC Total CO2 Anion Gap POC Anion Gap POC BUN BUN Creatinine POC Creatinine Est Cr Clr Drug Dosing Est GFR ( Amer) Est GFR (Non-Af Amer) BUN/Creatinine Ratio Glucose POC Glucose (other) Estimat Average Glucose Pending Hemoglobin A1c Pending Calcium POC Ioniz Calcium Jm Phosphorus 2.6 Magnesium 1.8 Total Bilirubin AST ALT Alkaline Phosphatase Troponin I High Sens 3.7 Total Protein Albumin Globulin Albumin/Globulin Ratio Triglycerides 92 Cholesterol 161 LDL Cholesterol, Calc 98 VLDL Cholesterol, Calc 18 HDL Cholesterol 45 Cholesterol/HDL Ratio 3.6 TSH SARS-CoV-2, RNA, NAAT 11/10/21 11/10/21 10:38 10:38 WBC RBC Hgb POC Hgb Hct POC Hct MCV MCH MCHC RDW Std Deviation RDW Coeff of Tyson Plt Count MPV Immature Gran % (Auto) Neut % (Auto) Lymph % (Auto) Person % (Auto) Eos % (Auto) Baso % (Auto) Neut # (Auto) Lymph # (Auto) Person # (Auto) Eos # (Auto) Baso # (Auto) Immature Gran # (Auto) PT INR APTT PTT Ratio D-Dimer POC Sodium Sodium POC Potassium Potassium POC Chloride Chloride Carbon Dioxide POC Total CO2 Anion Gap POC Anion Gap POC BUN BUN Creatinine POC Creatinine Est Cr Clr Drug Dosing Est GFR ( Amer) Est GFR (Non-Af Amer) BUN/Creatinine Ratio Glucose POC Glucose (other) Estimat Average Glucose Hemoglobin A1c Calcium POC Ioniz Calcium Jm Phosphorus Magnesium Total Bilirubin AST ALT Alkaline Phosphatase Troponin I High Sens 3.8 Total Protein Albumin Globulin Albumin/Globulin Ratio Triglycerides Cholesterol LDL Cholesterol, Calc VLDL Cholesterol, Calc HDL Cholesterol Cholesterol/HDL Ratio TSH Pending SARS-CoV-2, RNA, NAAT Medications Administered Current Inpatient Medications Acetaminophen (Acetaminophen 325 Mg Tab) 650 mg PO Q4H PRN PRN Reason: pain/fever Stop: 12/10/21 07:58 Last Admin: 11/10/21 11:20 Dose: 650 mg Documented by: Aspirin (Aspirin 81 Mg Ectab) 81 mg PO QAM STORM Stop: 12/11/21 08:59 Sodium Chloride (Nss 1000ml) 1,000 mls @ 125 mls/hr IV .Q8H STORM Stop: 12/10/21 10:44 Morphine Sulfate (Morphine Sulfate 2 Mg/Ml Carp) 2 mg IV Q1H PRN PRN Reason: Chest Pain Stop: 11/24/21 07:58 Nitroglycerin (Nitroglycerin Sl 0.4 Mg/Tab Tab) 0.4 mg SL UD PRN PRN Reason: Chest Pain Stop: 12/10/21 07:58 Ondansetron HCl (Ondansetron Inj 2 Mg/Ml 2 Ml Vial) 4 mg IV Q6H PRN PRN Reason: Nausea Stop: 12/10/21 07:58 (1) Chest pain Chest pain type: unspecified Qualified Code(s): R07.9 - Chest pain, unspecified
[2021-11-10] MEDS: SODIUM CHLORIDE 0.9% 1000ML 1,000 ML IV SCH ×2 (11:55→20:26)
--- NOTE | 2021-11-10 12:50 | CT Scan Report ---
CT angio chest dissec wo/w con CLINICAL HISTORY: chest pain with stroke/seizure like symptoms TECHNIQUE: Multidetector row helical CT of the chest was performed before and after injection of IV c ontrast. Coronal and sagittal reformations were obtained. Automated dose lowering techniques and/or a djustment according to patient size were utilized for this exam. CT DOSE: 1338.29 mGy.cm Comparison: None available at the time of this dictation. FINDINGS: Lungs and pleura: Normal. Heart and pericardium: There is mild cardiomegaly without evidence of pericardial effusion. Vessels: No aortic dissection is seen. Mediastinum and rubens: Unremarkable. Chest wall and lower neck: Unremarkable. Abdomen: Hepatic steatosis is noted. Bones: Unremarkable. IMPRESSION: No acute abnormality and in particular no evidence of acute aortic injury. ACT 112: Negative or not required by law. Electronically signed by: Fidencio Jose M.D. 11/10/2021 12:47 PM
[2021-11-10 13:09] LABS: Estimated Average Glucose 114 mg/dl; Hemoglobin A1C 5.6 % (4.5-5.6)
--- NOTE | 2021-11-10 14:19 | Electrocardiogram Report ---
Test Reason : Blood Pressure : / mmHG Vent. Rate : 082 BPM Atrial Rate : 082 BPM P-R Int : 162 ms QRS Dur : 102 ms QT Int : 354 ms P-R-T Axes : 018 088 013 degrees QTc Int : 413 ms Normal sinus rhythm Cannot rule out Inferior infarct , age undetermined Abnormal ECG No previous ECGs available Confirmed by Aron Lyles ([id number]) on 11/10/2021 2:18:39 PM Referred By: REFERRED SELF Confirmed By:Allen Lyles
--- NOTE | 2021-11-10 14:27 | Communication Note ---
Date of Service: November 10, 2021 Patient was admitted by [facility] team earlier this morning and then transferred to [facility] [place] 2[place] team. Please review H&P note for details. Reviewed labs, imaging, vitals, cardiology and neurology notes. Saw and examined the patient at bedside, in presence of and brother. 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 CT head and CTA head has been unremarkable. Labs with mild leucocytosis otherwise unremarkable. Trop, tele, EKG unremarkable. Echo unremarkable. During my encounter, EEG was being performed and it was normal. No seizure like activities were noted however his presentation seems concerning for a stroke or seizure. He was still complaining of sharp left sided chest pain with left arm heaviness. His LUE and LLE were weaker compared to the right along with decreased sensation on left side. He was however awake alert oriented x3 (although he did not know the exact date today but knew month and year) and answering all questions appropriately as well as the events that brought him here. VERNON. Chest clear anteriorly, heart sounds normal, abdomen benign, no edema. There was not much discrepancy in BP readings on both upper extremities. Agree with neuro that aortic dissection or PE needs to be ruled out. PE less likely as D dimer negative and respiratory status normal (normal RR, saturation and HR normal). Discussed with cardio about JANETT to r/o aortic dissection- JANETT not gold standard and favored CTA chest. Discussed with patient's and patient about CTA chest to rule out dissection and that he just received contrast in am for CTA head; and the risks for kidney injury due to contrast- They understand and are willing to proceed. CTA chest and MRI brain pending. Per neuro, if MRI and CTA unremarkable, will likely need LP in am to rule out SAH or meningoencephalitis but infection seems less likely at this point as no fever, WBC almost normal and his mentation is clear. If he is to have another seizure like activity, will need to start on antiepileptic and load Keppra 1 g IV. Continue tele and troponin trend.
[2021-11-10] MEDS ORDERED: GADOBUTROL 65ML VIAL IV ONE (22:08)
[2021-11-11] MEDS: SODIUM CHLORIDE 0.9% 1000ML 1,000 ML IV SCH ×3 (04:01→21:39)
[2021-11-11 07:05] LABS: Basophils # (auto) 0.02 K/uL (0-0.2); Basophils % (auto) 0.3 %; Eosinophils # (auto) 0.48 K/uL (0-0.5); Eosinophils % (auto) 6.2 %; Hematocrit (blood only) 43.7 % (42-52); Hemoglobin 14.5 g/dL (14.0-18.0); Immature Granulocytes # (auto) 0.02 K/uL (0.00-0.02); Immature Granulocytes % (auto) 0.3 %; Lymphocytes # (auto) 2.07 K/uL (1.2-3.4); Lymphocytes % (auto) 26.6 %; Mean Corpuscular Hemoglobin 29.1 pg (25-34); Mean Corpuscular Hgb Conc 33.2 g/dL (32-36); Mean Corpuscular Volume 87.8 fL (80-100); Mean Platelet Volume 10.2 fL (7.4-10.4); Monocytes # (auto) 1.22 K/uL (0.11-0.59); Monocytes % (auto) 15.7 %; Neutrophils # (auto) 3.98 K/uL (1.4-6.5); Neutrophils % (auto) 50.9 %; Platelet Count 262 K/uL (130-400); RDW Coefficient of Variation 13.6 % (11.5-14.5); RDW Standard Deviation 44.4 fL (36.4-46.3); Red Blood Count 4.98 M/uL (4.7-6.1); White Blood Count 7.79 K/uL (4.8-10.8)
[2021-11-11 07:17] LABS: INR 1.1 (0.9-1.1); Partial Thromboplastin Time 26.2 Seconds (21.0-31.0); Prothrombin Time 11.2 Seconds (9.0-12.0)
[2021-11-11 07:28] LABS: BUN Creatinine Ratio 7.5 (10-20); Calcium 8.7 mg/dl (8.5-10.1); Creatinine Clr Calc Pharmacy 126.4 ml/min; Est GFR (African American) 99.8 ml/min; Est GFR (Non-African American) 86.1 ml/min; Magnesium 1.9 mg/dl (1.7-2.4)
--- NOTE | 2021-11-11 08:26 | Magnetic Resonance Report ---
MR brain wo/w con HISTORY: 41 years-old Male stroke/seizure like symptoms with acute chest pain. Acute headache with s lurred speech. COMPARISON: CT head, CTA head and neck 11/10/2021. TECHNIQUE: Multiplanar and multisequence MRI of the brain was obtained both with and without the use of 11.5 cc Gadavist. FINDINGS: Lace Stripper localizer images demonstrate no gross extracranial abnormality. No restricted diffusion to sugg est acute or subacute infarct. Partially empty sella. The midline structures are otherwise unremarkab le. No acute intracranial hemorrhage, midline shift, abnormal extra-axial collection, hydrocephalus o r intracranial mass. No pathologic blooming artifact. There are no significant T2/FLAIR signal abnorm alities identified within the brain parenchyma. The mesial temporal lobes appear normal. No evidence of mesial temporal sclerosis, cortical dysplasia, triplett matter heterotopia or acute seizure focus. The re is no abnormal intra-axial or extra-axial enhancement identified. Cerebral venous sinuses and major arterial flow voids appear patent. Mastoid air cells are clear. Min imal mucosal thickening of the paranasal sinuses. The skull, orbits and soft tissues are unremarkable . IMPRESSION: 1. No acute intracranial abnormality. No acute or subacute infarct. 2. No abnormal enhancement. ACT 112: Negative or not required by law. The above report was generated using voice recognition software. It may contain grammatical, syntax o r spelling errors. Dictated: 11/11/2021 7:02 AM Transcribed: 11/11/2021 7:27 AM Bren [id number] [email or web address] Electronically signed by: Charles Monterroso M.D. 11/11/2021 8:25 AM
--- NOTE | 2021-11-11 08:41 | Neurology Progress Note ---
Date of Service November 11, 2021 Assessment & Plan (1) Stroke-like symptoms: (2) Seizure-like activity: Plan: 41-year-old male, otherwise healthy direct of real estate, presenting with first ever seizure-like episode/strokelike episode. Patient's evaluation thus far has been fairly unrevealing. His left-sided weakness is improving although he continues to exhibit modest functional appearing left upper extremity weakness. Patient does not have fever, chills, nuchal rigidity, or a leukocytosis. At this point, I think meningoencephalitis would be very unlikely, especially in light of his improving mental status and general neurological examination. I do not think pu rsuing a lumbar puncture is absolutely necessary at this time. This is this patient's first ever significant neurologic episode. Clinical history, signs and symptoms potentially consistent with an isolated provoked seizure-like episode, potentially due to stress and sleep deprivation. Although his current left-sided weakness is improving, it does have a functional character. Nonetheless, a Tyler's paralysis is not completely excluded. I do expect continued improvement over the next few days. At this point, I would not recommend treatment with an anticonvulsant as this is his first ever seizure-like episode that may have been provoked by stressors and sleep deprivation. However, if he were to have another episode would need to recommend additional evaluation and likely treatment with an anticonvulsant at that point in time. A stroke is probably very unlikely given his unremarkable brain MRI, clinical presentation, and current examination findings. Nonetheless, an MRI negative st roke affecting the brainstem or right cerebral hemisphere cannot be completely excluded. Therefore, I would recommend that he continue with daily low-dose aspirin. I would also recommend 30-day mobile cardiac outpatient telemetry. Patient will need consultations with PT/OT. Patient may follow-up with me in neurology clinic in 2 to 3 weeks. Admission and Anticipated Discharge Date Admission Date: November 10, 2021 Subjective Follow-up for strokelike episode/seizure-like episode Patient reports modest improvement in his left leg weakness this morning although continues to complain of left upper extremity weakness and difficulty utilizing the left hand. No associated facial weakness, vision disturbance, or headache. No fevers or chills. No significant neck stiffness. This is patient's first ever stroke or seizure-like episode. He does report significant job-related stressors recently as well as poor sleep over the preceding weekend. No alcohol or substance misuse. Patient's evaluations thus far have been fairly unremarkable including CT of the head, CT angiography of the head and neck, and EEG. Patient had a brain MRI completed overnight. Per my review of the images, no evidence of restricted diffusion, blooming artifact, hydrocephalus, Chiari malformation, parenchymal abnormality, stroke, neoplasm, demyelinating lesion, or mesial temporal sclerosis. No abnormal postcontrast enhancement. CT of the chest negative for aortic dissection or other significant pathology. Echocardiography within normal limits. Patient was started on aspirin 81 mg/day at the time of admission due to possibility of stroke. He was not started on an anticonvulsant. Has not had any further seizure-like episodes. Cardiology has been consulted as well. Minimal cardiovascular risk factors. No specific additional recommendations from cardiac standpoint at this time. Review of Systems Eyes: no blind spots and no diplopia Cardiovascular: no chest pain Neurologic: + localized weakness; no tremor(s) and no headache(s) Results & Data ([facility]) Vital Signs (Past 12 Hours) Vital Signs Temp Pulse Resp BP Pulse Ox 11/11/21 07:11 37.2 C 64 18 127/77 97 11/11/21 04:00 36.7 C 62 20 102/62 97 11/10/21 22:50 36.6 C 66 16 137/82 99 Laboratory Results WBC 7.79, hemoglobin 14.5, hematocrit 43.7, platelet count 262, sodium 139, potassium 4.0, BUN 8, creatinine 1.06, glucose 88, calcium 8.7, magnesium 1.9 Diagnostic Findings Brain MRI images as described above. Official radiology interpretation available, no acute abnormality, no abnormal enhancement. No abnormalities within the temporal lobe such as mesial temporal sclerosis, cortical dysplasia, triplett matter heterotopia, or acute seizure focus. Exam (Neuro) Neurologic: Oriented to:: Person, Place and Time Memory: Short Term Intact and Remote Intact Attention: Span Intact and Concentration Intact Speech Fluency: negative Dysarthria or Dysfluency Fund of Knowledge: Current Events, Past History and Vocabulary Cranial Nerves: Normal II, III, IV, , V, VII, VIII, IX, X, XI and XII Motor Strength: Normal Lower Extremities; negative Normal Upper Extremities Spasticity: None Muscle Bulk/Involuntary Movements: No Involuntary Movements Coordination: Finger-Nose Abnormal Laterality: Left Deep Tendon Reflexes: Rt Biceps: 2+, Lt Biceps: 2+, Rt Patellar: 2+ and Lt Patellar: 2+ Details: Patient exhibits functional appearing weakness for the left upper extremity, slow movement initiation, poor grasp, incomplete movement with [id number]. Able to lift the limb out of bed against gravity, strength generally 3-4 out of 5. No associated tremor, dyskinesia, or abnormality of muscle tone or deep tendon reflexes. No upgoing plantar response. Coding Level of Care Code 85817 Subseq Hosp Care Lvl 2 Diagnoses Stroke-like symptoms R29.90 Seizure-like activity R56.9
[2021-11-11] MEDS: ASPIRIN 81 MG ECTAB PO SCH (08:59)
--- NOTE | 2021-11-11 14:44 | Cardiology Progress Note ---
Date of Service November 11, 2021 Assessment & Plan (1) Stroke-like symptoms: (2) Left-sided weakness: (3) Chest pain: (4) Seizure-like activity: Plan: The patient's cardiac work-up is negative. He has an anatomically normal heart by echocardiography. CTA of the aorta was negative for pathology. On the telemetry he has maintained a normal sinus rhythm with no arrhythmias. At this point I would recommend no additional cardiac testing. Cardiology will sign off the case. Admission and Anticipated Discharge Date Admission Date: November 10, 2021 Subjective The patient had an uneventful night. Neurology note appreciated. Review of Systems Review of Systems: Review of Systems: See HPI for pertinent positives. All other 10 point review of systems are negative. Physical Exam Physical Exam: General: no acute distress and stated age Head: normocephalic, no masses, lesions, tenderness or abnormalities Eyes: conjunctiva are pink and non-injected, sclera clear Neck: supple, no adenopathy, no bruits, normal jugular venous pulse, no hepatojugular reflux Chest: normal shape and normal respiratory effort Lungs: clear to auscultation and percussion Cardiac Exam: - regular rate & rhythm, no murmurs gallops or rubs - normal S1, normal S2 Pulses: 2(+) throughout Abdomen: abdomen soft, non-tender, no abnormal masses and no hepatosplenomegaly Musculoskeletal: no gait disturbance, no joint inflammation, no deforming arthritis Extremities: no edema and no cyanosis Neuro: grossly normal exam Results & Data ([facility]) Vital Signs (Past 12 Hours) Vital Signs Temp Pulse Pulse Resp BP BP Pulse Ox 11/11/21 12:09 38.6 C H 65 20 127/80 95 11/11/21 08:00 67 11/11/21 07:11 37.2 C 64 18 127/77 97 11/11/21 04:00 36.7 C 62 20 102/62 97 Laboratory Results Laboratory Results - last 24 hr 11/10/21 11/10/21 11/11/21 15:59 21:27 06:11 WBC 7.79 RBC 4.98 Hgb 14.5 Hct 43.7 MCV 87.8 MCH 29.1 MCHC 33.2 RDW Std Deviation 44.4 RDW Coeff of Tyson 13.6 Plt Count 262 MPV 10.2 Immature Gran % (Auto) 0.3 Neut % (Auto) 50.9 Lymph % (Auto) 26.6 [place] % (Auto) 15.7 Eos % (Auto) 6.2 Baso % (Auto) 0.3 Neut # (Auto) 3.98 Lymph # (Auto) 2.07 [place] # (Auto) 1.22 H Eos # (Auto) 0.48 Baso # (Auto) 0.02 Immature Gran # (Auto) 0.02 PT INR APTT PTT Ratio Sodium Potassium Chloride Carbon Dioxide Anion Gap BUN Creatinine Est Cr Clr Drug Dosing Est GFR ( Amer) Est GFR (Non-Af Amer) BUN/Creatinine Ratio Glucose Calcium Magnesium Troponin I High Sens 3.0 2.8 11/11/21 11/11/21 06:11 06:11 WBC RBC Hgb Hct MCV MCH MCHC RDW Std Deviation RDW Coeff of Tyson Plt Count MPV Immature Gran % (Auto) Neut % (Auto) Lymph % (Auto) [place] % (Auto) Eos % (Auto) Baso % (Auto) Neut # (Auto) Lymph # (Auto) [place] # (Auto) Eos # (Auto) Baso # (Auto) Immature Gran # (Auto) PT 11.2 INR 1.1 APTT 26.2 PTT Ratio 1.0 Sodium 139 Potassium 4.0 Chloride 108 H Carbon Dioxide 27 Anion Gap 4 BUN 8 Creatinine 1.06 Est Cr Clr Drug Dosing 126.4 Est GFR ( Amer) 99.8 Est GFR (Non-Af Amer) 86.1 BUN/Creatinine Ratio 7.5 L Glucose 88 Calcium 8.7 Magnesium 1.9 Troponin I High Sens Medications Administered Current Inpatient Medications Acetaminophen (Acetaminophen 325 Mg Tab) 650 mg PO Q4H PRN PRN Reason: pain/fever Stop: 12/10/21 07:58 Last Admin: 11/10/21 11:20 Dose: 650 mg Documented by: Aspirin (Aspirin 81 Mg Ectab) 81 mg PO QAM [facility] Stop: 12/11/21 08:59 Last Admin: 11/11/21 08:59 Dose: 81 mg Documented by: Sodium Chloride (Nss 1000ml) 1,000 mls @ 125 mls/hr IV .Q8H [facility] Stop: 12/10/21 10:44 Last Admin: 11/11/21 10:53 Dose: 125 mls/hr Documented by: Morphine Sulfate (Morphine Sulfate 2 Mg/Ml Carp) 2 mg IV Q1H PRN PRN Reason: Chest Pain Stop: 11/24/21 07:58 Nitroglycerin (Nitroglycerin Sl 0.4 Mg/Tab Tab) 0.4 mg SL UD PRN PRN Reason: Chest Pain Stop: 12/10/21 07:58 Ondansetron HCl (Ondansetron Inj 2 Mg/Ml 2 Ml Vial) 4 mg IV Q6H PRN PRN Reason: Nausea Stop: 12/10/21 07:58 (1) Chest pain Chest pain type: unspecified Qualified Code(s): R07.9 - Chest pain, unspecified
--- NOTE | 2021-11-11 18:15 | CT Scan Report ---
CT head/brain wo con CLINICAL HISTORY: stroke like symptoms (RUE weakness) Technique: Contiguous axial CT images of the head were acquired from the base of the skull to the elaine arpita without intravenous contrast administration. Images were viewed in brain, subdural and bone windo ws. Automated dose lowering techniques and/or adjustment according to patient size were utilized for this exam. Comparison: Comparison is made to CTA head 11/10/2021 Findings: The ventricles, basal cisterns, and cerebral sulci are normal. There is no acute intracranial hemorrh age or evidence of acute territorial infarction. Neither mass effect, shift of the midline structures , nor abnormal extra-axial fluid collections are shown. Imaged portions of the paranasal sinuses and mastoid air cells are clear. The orbits appear normal. There are no acute fractures of the calvaria or scalp swelling. Impression: No acute intracranial hemorrhage, no evidence of acute territorial infarction or other acute intracra nial disease process. ACT 112: Negative or not required by law. Electronically signed by: Fidencio Jose M.D. 11/11/2021 6:13 PM
--- NOTE | 2021-11-11 19:51 | Hospitalist Progress Note ---
Date of Service November 11, 2021 Assessment & Plan (1) Stroke-like symptoms: (2) Left-sided weakness: (3) Seizure-like activity: Plan: 41-year-old male present with seizure-like episode or strokelike episode. Symptoms might be related to increase level of stress or lack of sleep CT head showed no acute intracranial abnormality. CTA head and neck showed no significant stenosis, occlusion, or aneurysm within the [place] of [place]. MRI head showed No acute intracranial abnormality. No acute or subacute infarct. Neuro on board recommended to continue aspirin 81mg No treatment with anticonvulsant since this is his first ever seizure-like ep isode that may have been provoked by stressors and sleep deprivation as per Neuro Will need outpatient holter monitor (Zio Patch) Since we are not 100% sure that pt had a seizure, we will encourage him not to drive for now until follow up appointment with PCP Continue PT/OT eval Might consider inpatient rehab Fall precaution Chest pain EKG showed no ischemic changes Troponin negative ECHO showed no wall motion abnormality with EF 60-65% CTA chest negative No further cardiac testing as per cardiology Resolved DVT px on SCD CODE status full code Admission and Anticipated Discharge Date Admission Date: November 10, 2021 Subjective Patient was seen and evaluated for follow-up of strokelike symptom Lying in bed with no acute distress with and coworker at bedside With his permission patient was agreed to be seen while coworker was present Patient said his left upper and lower extremity slightly improved Discussed about inpatient rehab. Patient is not interested to go to inpatient rehab, but he will discuss that option with his Denies any chest pain, palpitation, dizziness, shortness of breath. Review of Systems Review of Systems: All systems reviewed & are unremarkable except as noted in Subjective Physical Exam Physical Exam: General- No acute distress Head- atraumatic Eyes- PERRL, EOMI, ENT- oropharynx clear Neck- supple, no JVD Lungs- clear to auscultation Heart- regular rhythm; no murmur Abdomen- normal bowel sounds, soft, nontender Extremities- no calf tenderness, LUE weakness (unable to lift left arm ) able to lift LLE Neuro- alert, oriented x 3; PERRL, EOMI; no facial palsy; no dysarthria Skin- warm & dry Results & Data Results & Data ([facility]) Vital Signs (Past 12 Hours) Vital Signs Temp Pulse Pulse Resp BP Pulse Ox 11/11/21 16:31 36.6 C 65 20 120/76 98 11/11/21 15:00 74 11/11/21 12:09 38.6 C H 65 20 127/80 95 11/11/21 08:00 67
[2021-11-12] MEDS: SODIUM CHLORIDE 0.9% 1000ML 1,000 ML IV SCH ×2 (05:24→12:00)
[2021-11-12 08:08] LABS: BUN Creatinine Ratio 9.2 (10-20); Calcium 8.7 mg/dl (8.5-10.1); Creatinine Clr Calc Pharmacy 151.3 ml/min; Est GFR (African American) 123.4 ml/min; Est GFR (Non-African American) 106.5 ml/min; Potassium 3.8 mmol/L (3.5-5.1)
[2021-11-12 08:20] LABS: Basophils # (auto) 0.04 K/uL (0-0.2); Basophils % (auto) 0.5 %; Eosinophils # (auto) 0.64 K/uL (0-0.5); Eosinophils % (auto) 7.7 %; Hematocrit (blood only) 42.5 % (42-52); Hemoglobin 14.1 g/dL (14.0-18.0); Immature Granulocytes # (auto) 0.02 K/uL (0.00-0.02); Immature Granulocytes % (auto) 0.2 %; Lymphocytes # (auto) 2.58 K/uL (1.2-3.4); Mean Corpuscular Hemoglobin 29.2 pg (25-34); Mean Corpuscular Hgb Conc 33.2 g/dL (32-36); Mean Platelet Volume 10.2 fL (7.4-10.4); Monocytes # (auto) 0.97 K/uL (0.11-0.59); Monocytes % (auto) 11.6 %; Neutrophils # (auto) 4.08 K/uL (1.4-6.5); Platelet Count 265 K/uL (130-400); RDW Coefficient of Variation 13.5 % (11.5-14.5); RDW Standard Deviation 43.4 fL (36.4-46.3); Red Blood Count 4.83 M/uL (4.7-6.1); White Blood Count 8.33 K/uL (4.8-10.8)
[2021-11-12] MEDS: ASPIRIN 81 MG ECTAB PO SCH (08:42)
[2021-11-12] MEDS: ENOXAPARIN INJ 40 MG/0.4 ML SYR SQ SCH (08:43)
--- NOTE | 2021-11-12 09:15 | Neurology Progress Note ---
Date of Service November 12, 2021 Assessment & Plan (1) Stroke-like symptoms: Plan: Strokelike symptoms with persistent functional appearing weakness for the left upper extremity. Episode of inability to sign with the right hand and perhaps some associated confusion noted last night, unremarkable CT of the head at that time, these particular symptoms have resolved. No associated seizure-like activity. Brain MRI completed 2 days ago was negative for acute or subacute infarct or other significant pathology. CT angiography of the head and neck unremarkable as well. EEG completed 2 days ago was negative for epileptiform abnormalities. No prior history of seizures or seizure-like episodes. Patient does have a history of depression and significant work-related stressors. He did inform me that he had been treated with sertraline for several years but elected to stop this medication about 6 weeks ago on his own. I do have some index of suspicion that his current symptomatology is related to stress and psychological factors. However, given his persistent left arm weakness, and episode of transient right arm weakness overnight, I would like him to have a repeat brain MRI as well as an MRI of the cervical spine at this time. [facility] Patient was not interested in consultation with psychiatry regarding his depression and discontinuation of sertraline recently. However, would consider consultation depending on his status going forward. Admission and Anticipated Discharge Date Admission Date: November 10, 2021 Subjective Follow-up for seizure-like episode/strokelike episode Patient had an episode last night characterized by inability to sign his name, possible right upper extremity weakness. Seemed confused at that time as well according to his spouse who is currently at bedside. Has not had any further seizure-like episodes, however. Continues to complain of weakness affecting the left arm. CT of the head completed overnight was unremarkable, no evidence of hemorrhage or acute process. I did obtain some additional history from this patient and his spouse this morning. He does have a history of depression which has been an issue for the past several years, for which she had been prescribed sertraline. He complains of significant job-related stressors. His PCP has been prescribing the sertraline although the patient elected to discontinue this medication about 6 weeks ago. He had been taking about 50 mg/day and informing that he gradually tapered off this medication, going down to 25 mg/day for a little while, then every other day, then discontinuing altogether. He continues to complain of mild feelings of depression and significant stressors related to his job. Review of Systems Eyes: no blind spots and no diplopia Neurologic: + localized weakness and + loss of sensation; no headache(s) and no memory loss Psychiatric: + depression Results & Data ([facility]) Vital Signs (Past 12 Hours) Vital Signs Temp Pulse Pulse Resp BP BP Pulse Ox 11/12/21 07:30 36.5 C 47 L 18 113/73 98 11/12/21 03:35 36.7 C 56 L 17 101/63 97 11/11/21 22:25 67 Laboratory Results WBC 8.33, hemoglobin 14.1, hematocrit 42.5, MCV 88.0, platelet count 265, sodium 140, potassium 3.8, BUN 8, creatinine 0.87, glucose 90, calcium 8.7. Diagnostic Findings Repeat CT of the head completed yesterday negative for hemorrhage or acute process. No evidence of evolving infarct or other significant pathology identified. I reviewed the images as well as the radiologist's interpretation of this test and agree. Exam (Neuro) Neurologic: Oriented to:: Person, Place and Time Memory: Short Term Intact and Remote Intact Attention: Span Intact and Concentration Intact Speech Fluency: negative Dysarthria or Dysfluency Fund of Knowledge: Current Events, Past History and Vocabulary Cranial Nerves: Normal II, III, IV, , V, VII, VIII, IX, X, XI and XII Motor Strength: Normal Lower Extremities; negative Normal Upper Extremities (Functional appearing left upper extremity weakness noted.) Motor Tone: Normal Lower Extremities and Normal Upper Extremities Muscle Bulk/Involuntary Movements: No Involuntary Movements Sensation: negative Vibration Intact Coordination: Finger-Nose Abnormal Laterality: Left; negative Heel-Stroud Abnormal Deep Tendon Reflexes: Rt Triceps: 2+, Lt Triceps: 2+, Rt Biceps: 2+, Lt Biceps: 2+, Rt Brachioradialis: 2+, Lt Brachioradialis: 2+, Rt Patellar: 2+, Lt Patellar: 2+, Rt Ankle: 2+ and Lt Ankle: 2+ Special Tests: negative Babinski Present Details: Difficulty grasping with the left hand, more so with the left thumb and index finger. However, able to individually tap thumb and index finger, as well as the thumb and middle finger. No weakness of wrist extensors or intrinsic hand musculature noted. Giveaway weakness for musculature of the proximal left upper extremity noted. No associated facial droop. No weakness for either lower extremity. No weakness for the right upper extremity noted. No aphasia or word finding difficulty. Coding Level of Care Code 84829 Subseq Hosp Care Lvl 2 Diagnoses Stroke-like symptoms R29.90
[2021-11-12] MEDS ORDERED: GADOBUTROL 65ML VIAL IV ONE (13:16)
--- NOTE | 2021-11-12 13:22 | Magnetic Resonance Report ---
CERVICAL SPINE MRI HISTORY: left arm weakness TECHNIQUE: Multiplanar multisequence MRI of the cervical spine was performed without the use of contr ast. COMPARISON STUDY: None. FINDINGS: No fracture or subluxation within the cervical spine. Disc spaces are preserved. Prevertebr al soft tissues and the C1-C2 interval are intact. The visualized posterior fossa is unremarkable. Th e cervical spinal cord is normal in course, caliber, and signal intensity. C2-C3: No significant central canal or neural foraminal narrowing. C3-C4: No significant central canal or neural foraminal narrowing. C4-C5: Mild bilateral neural foraminal narrowing due to the uncovertebral hypertrophy. No disc hernia tions. No significant central canal narrowing. C5-C6: Mild right and moderate to severe left neural foraminal narrowing due to the uncovertebral hyp ertrophy. No significant central canal narrowing. C6-C7: No significant central canal or neural foraminal narrowing. C7-T1: No significant central canal or neural foraminal narrowing. IMPRESSION: 1. No fracture or subluxation. 2. No disc herniations. No significant central canal or neural foraminal narrowing. 3. Bilateral neural foraminal narrowing within the lower cervical spine as described above most prono unced within the left C5-C6 level. ACT 112: Negative or not required by law. Electronically signed by: Stanley Fontaine M.D. 11/12/2021 1:21 PM
--- NOTE | 2021-11-12 14:21 | Magnetic Resonance Report ---
Brain MRI WITH AND WITHOUT CONTRAST HISTORY: left arm weakness, h/o seizure like episode TECHNIQUE: Multiplanar multisequence MRI of the brain was performed both before and after the intrave nous administration of contrast. COMPARISON STUDY: Head CT 11/11/2021. Brain MRI 11/10/2021. FINDINGS: There are no areas of restricted diffusion to suggest acute infarction. The midline structu res are intact. The paranasal sinuses are clear. The mastoid air cells are clear. The ventricles and sulci are within normal limits for age. There is no mass, hematoma, midline shift. The major vascular flow-voids at the skull base are well maintained. Postcontrast sequences show no areas of abnormal e nhancement. IMPRESSION: No acute intracranial abnormality. ACT 112: Negative or not required by law. Electronically signed by: Stanley Fontaine M.D. 11/12/2021 2:19 PM
--- NOTE | 2021-11-12 23:39 | Hospitalist Progress Note ---
Date of Service November 12, 2021 Assessment & Plan (1) Stroke-like symptoms: (2) Left-sided weakness: (3) Seizure-like activity: Plan: 41-year-old male present with seizure-like episode or strokelike episode. Symptoms might be related to increase level of stress or lack of sleep CT head showed no acute intracranial abnormality. CTA head and neck showed no significant stenosis, occlusion, or aneurysm within the [place]. MRI head showed No acute intracranial abnormality. No acute or subacute infarct. repeat MRI head today showed no acute intracranial abnormality MRI cervical showed C5-C6: Mild right and moderate to severe left neural robbie inal narrowing due to the uncovertebral hypertrophy. Neuro on board recommended to continue aspirin 81mg No treatment with anticonvulsant since this is his first ever seizure-like episode that may have been provoked by stressors and sleep deprivation as per Neuro Will need outpatient holter monitor (Zio Patch) Since we are not 100% sure that pt had a seizure, we will encourage him not to drive for now until follow up appointment with PCP Continue PT/OT eval Will discuss MRI cervical finding with ortho- doubt the MRI finding causing the left Upper extremity weakness Consider inpatient rehab Fall precaution Chest pain EKG showed no ischemic changes Troponin negative ECHO showed no wall motion abnormality with EF 60-65% CTA chest negative No further cardiac testing as per cardiology Resolved DVT px on SCD CODE status full code Admission and Anticipated Discharge Date Admission Date: November 12, 2021 Subjective Patient was seen and evaluated for follow-up of strokelike symptom Lying in bed with no acute distress with and coworkers When I entered his room, his coworkers were getting ready to leave Patient said his left upper and lower extremity slightly improved Pt said that late afternoon yesterday he was not able to write his name He said that he was able to move his right arm, but it seems like he forgot how to write said that he feels alittle emotional today He is considering to go to [facility] for a short course of rehab Denies any chest pain, palpitation, dizziness, shortness of breath. Review of Systems Review of Systems: All systems reviewed & are unremarkable except as noted in Subjective Physical Exam Physical Exam: General- No acute distress Head- atraumatic Eyes- PERRL, EOMI, ENT- oropharynx clear Neck- supple, no JVD Lungs- clear to auscultation Heart- regular rhythm; no murmur Abdomen- normal bowel sounds, soft, nontender Extremities- no calf tenderness, LUE weakness slightly able to lift Neuro- alert, oriented x 3; PERRL, EOMI; no facial palsy; no dysarthria Skin- warm & dry Results & Data Results & Data ([facility]) Vital Signs (Past 12 Hours) Vital Signs Temp Pulse Pulse Resp BP Pulse Ox 11/12/21 23:07 58 L 11/12/21 22:27 36.9 C 56 L 16 110/67 100 11/12/21 20:01 37.0 C 59 L 16 104/63 99 11/12/21 15:38 37.0 C 60 18 130/74 97
--- NOTE | 2021-11-13 08:07 | Hospitalist Progress Note ---
Date of Service November 13, 2021 Assessment & Plan (1) Stroke-like symptoms: (2) Left-sided weakness: (3) Seizure-like activity: Plan: 41-year-old male present with seizure-like episode or strokelike episode. Symptoms might be related to increase level of stress or lack of sleep CT head showed no acute intracranial abnormality. CTA head and neck showed no significant stenosis, occlusion, or aneurysm within the [place]. MRI head showed No acute intracranial abnormality. No acute or subacute infarct. repeat MRI head today showed no acute intracranial abnormality MRI cervical showed C5-C6: Mild right and moderate to severe left neural robbie inal narrowing due to the uncovertebral hypertrophy. Neuro on board recommended to continue aspirin 81mg No treatment with anticonvulsant since this is his first ever seizure-like episode that may have been provoked by stressors and sleep deprivation as per Neuro Since we are not 100% sure that pt had a seizure, we will encourage him not to drive for now until follow up appointment with PCP Continue PT/OT eval MRI cervical finding discussed with spine ortho Dr. Pfeiffer that reviewed his imaging Dr. Pfeiffer said that the MRI cervical finding is benign and that will not cause the degree severity of the weakness that he presented Neuro recommended outpatient EMG/nerve conduction study of the left upper extremity to further assess for radiculopathy. Neuro recommended no need to continue the aspirin on discharge Pt agreed to go to inpatient rehab Follow up with neuro in 2 to 3 weeks outpatient Fall precaution Chest pain EKG showed no ischemic changes Troponin negative ECHO showed no wall motion abnormality with EF 60-65% CTA chest negative No further cardiac testing as per cardiology Resolved Anxiety Pt is under alot of stress at work He was on Zoloft 25mg that he stopped about 2 months ago Consider neuropsych eval if continues to have nonspecific stroke like symptoms DVT px on SCD CODE status full code Disposition Discharge to [facility] today Admission and Anticipated Discharge Date Admission Date: November 12, 2021 Subjective Patient was seen and evaluated for follow-up of strokelike symptom Lying in bed with no acute distress Pt said that he is feeling a lot better His left upper extremity is getting stronger Denies any chest pain, palpitation, dizziness and SOB Review of Systems Review of Systems: All systems reviewed & are unremarkable except as noted in Subjective Physical Exam Physical Exam: General- No acute distress Head- atraumatic Eyes- PERRL, EOMI, ENT- oropharynx clear Neck- supple, no JVD Lungs- clear to auscultation Heart- regular rhythm; no murmur Abdomen- normal bowel sounds, soft, nontender Extremities- no calf tenderness, able to lift LUE with strength improves Neuro- alert, oriented x 3; PERRL, EOMI; no facial palsy; no dysarthria Skin- warm & dry Results & Data Results & Data ([facility]) Vital Signs (Past 12 Hours) Vital Signs Temp Pulse Pulse Resp BP Pulse Ox 11/13/21 07:20 36.6 C 56 L 18 116/67 96 11/13/21 04:44 36.7 C 54 L 14 102/61 96 11/12/21 23:07 58 L 11/12/21 22:27 36.9 C 56 L 16 110/67 100
[2021-11-13 08:25] LABS: Basophils # (auto) 0.05 K/uL (0-0.2); Basophils % (auto) 0.5 %; Eosinophils # (auto) 0.46 K/uL (0-0.5); Hematocrit (blood only) 44.5 % (42-52); Hemoglobin 14.8 g/dL (14.0-18.0); Immature Granulocytes # (auto) 0.03 K/uL (0.00-0.02); Immature Granulocytes % (auto) 0.3 %; Lymphocytes # (auto) 2.89 K/uL (1.2-3.4); Lymphocytes % (auto) 31.6 %; Mean Corpuscular Hemoglobin 28.5 pg (25-34); Mean Corpuscular Hgb Conc 33.3 g/dL (32-36); Mean Corpuscular Volume 85.7 fL (80-100); Mean Platelet Volume 10.2 fL (7.4-10.4); Monocytes % (auto) 8.7 %; Neutrophils # (auto) 4.92 K/uL (1.4-6.5); Neutrophils % (auto) 53.9 %; Platelet Count 281 K/uL (130-400); RDW Coefficient of Variation 13.4 % (11.5-14.5); RDW Standard Deviation 42.2 fL (36.4-46.3); Red Blood Count 5.19 M/uL (4.7-6.1); White Blood Count 9.15 K/uL (4.8-10.8)
[2021-11-13 09:00] LABS: BUN Creatinine Ratio 9.4 (10-20); Calcium 9.4 mg/dl (8.5-10.1); Creatinine Clr Calc Pharmacy 137.2 ml/min; Est GFR (African American) 112.5 ml/min; Est GFR (Non-African American) 97.1 ml/min; Potassium 3.8 mmol/L (3.5-5.1)
[2021-11-13] MEDS: ASPIRIN 81 MG ECTAB PO SCH (09:29)
[2021-11-13] MEDS: ENOXAPARIN INJ 40 MG/0.4 ML SYR SQ SCH (09:30)
--- NOTE | 2021-11-13 09:49 | Neurology Progress Note ---
Date of Service November 13, 2021 Assessment & Plan (1) Stroke-like symptoms: (2) Seizure-like activity: (3) Cervical radiculopathy: Plan: As described previously, strokelike symptoms/seizure-like episode with persistent functional appearing weakness for the left upper extremity. Left lower extremity weakness has resolved. No associated facial droop or weakness at this time. Patient's repeat brain MRI completed yesterday remains negative for acute process or obvious abnormality. The C-spine MRI does reveal some degenerative changes, most notable at C5-6 resulting in severe left neuroforaminal narrowing due to uncovertebral hypertrophy. No significant cent ral canal narrowing, however. It is possible that to some extent, his left upper extremity weakness could be radicular in nature although he does not really complain of significant, classic radiculopathy type symptoms at this point in time, such as neck pain with radiation down into the left upper limb. Would recommend obtaining an outpatient EMG/nerve conduction study of the left upper extremity to further assess for radiculopathy. As described previously, patient does have a history of depression and significant work-related stressors and had stopped his antidepressant medication about 6 weeks ago. I continue to have some index of suspicion that much of his current presentation was related to stress and psychological factors. I have not recommended that he start an anticonvulsant for the isolated seizure-like episode, at this point in time. Also, at this point in time, as stroke is very unlikely, I do not think he would need to continue with daily low-dose aspirin as an outpatient. Furthermore, he has already been seen by cardiology, additional testing was not recommended. Would not need additional outpatient cardiac monitoring at this point in time. Patient may follow-up with me in the outpatient clinic in 2 to 3 weeks. No further immediate recommendations. Admission and Anticipated Discharge Date Admission Date: November 12, 2021 Subjective Follow-up for strokelike episode/seizure-like episode Patient feeling much improved today, especially the left upper extremity weakness although continues to have mild difficulty with [id number] on the left and with grasping with the left hand. No further stroke or seizure-like episodes. Patient did complete the repeat/follow-up brain MRI as well as MRI of the cervical spine yesterday. I did review these images as well as the radiologist's interpretation of these tests. No acute process. No evidence of neoplasm, demyelinating disease, stroke, or hemorrhage. No abnormal postcontrast enhancement. The cervical spine MRI did reveal moderate to severe left neuroforaminal narrowing due to uncovertebral hypertrophy at C5-6. No significant central canal narrowing at this level, however. Patient denies significant cervicalgia or radicular symptoms currently. Review of Systems Eyes: no blind spots and no diplopia Neurologic: + localized weakness and + loss of sensation Results & Data ([facility]) Vital Signs (Past 12 Hours) Vital Signs Temp Pulse Pulse Resp BP Pulse Ox 11/13/21 07:20 36.6 C 56 L 18 116/67 96 11/13/21 04:44 36.7 C 54 L 14 102/61 96 11/12/21 23:07 58 L 11/12/21 22:27 36.9 C 56 L 16 110/67 100 Laboratory Results WBC 9.15, hemoglobin 14.8, hematocrit 44.5, MCV 85.7, platelet count 281, sodium 139, potassium 3.8, BUN 9, creatinine 0.96, glucose 114, calcium 9.4. Diagnostic Findings MRI results are as described above. EEG completed November 10, 2021 revealed intermittent left temporal slowing, no epileptiform abnormalities. Exam (Neuro) Neurologic: Oriented to:: Person, Place and Time Memory: Short Term Intact and Remote Intact Attention: Span Intact and Concentration Intact Speech Fluency: negative Dysarthria or Dysfluency Fund of Knowledge: Current Events, Past History and Vocabulary Cranial Nerves: Normal II, III, IV, , V, VII, VIII, IX, X, XI and XII Motor Strength: Normal Lower Extremities; negative Normal Upper Extremities Motor Tone: Normal Lower Extremities and Normal Upper Extremities Muscle Bulk/Involuntary Movements: No Involuntary Movements; negative Muscle Atrophy Coordination: Finger-Nose Abnormal Laterality: Left Deep Tendon Reflexes: Rt Biceps: 2+, Lt Biceps: 2+, Rt Patellar: 2+ and Lt Patellar: 2+ Details: Patient continues to have modest difficulty with [id number] on the left, seems to stop long-term, denies associated pain in the elbow, shoulder or neck, however. Does not have a true pronator drift. Does not fix with arm roll. 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 Coding Level of Care Code 62433 Subseq Hosp Care Lvl 2 Diagnoses Stroke-like symptoms R29.90 Seizure-like activity R56.9 Cervical radiculopathy M54.12
--- NOTE | 2021-11-13 14:20 | Discharge Summary ---
Date of Service November 13, 2021 Admission HPI Per Admitting Provider Thad Ruiz is a 41yo male with no significant past medical history presenting with left sided chest pain and possible seizure activity. Patient reports intermittent left sided chest pain with radiation to the jaw, left arm and between the shoulder blades for the last several days. Pain is non-exertional. Reproducible with movement and position. Also with headache for the last two days. Patient works as a [employer]. He was at work tonight and didn't feel well. Several of his colleagues said he looked pale and wasn't acting himself. He had ongoing chest pain with left arm weakness as well as generalized weakness and fatigue. Around 01:30 [address] when his chest pain worsened - sharp in nature, 10/10 in severity with radiation to his jaw, left arm and bilateral shoulders. He had associated diaphoresis, dizziness, SOB and nausea. He also reports seeing double and brief inability to speak. He pulled over and tried to rest to see if the symptoms would resolve. EMS was called when colleagues couldn't get ahold of him- as noted by EMS as well as colleagues at the scene - patient reportedly was having difficulty communicating, unable to form words. Speech was slurred an nonsensical. He was also noted to be lip smacking and having repetitive shaking motion with his right hand. Patient had a brief loss of consciousness for appx 2 minutes. Presently he states he feels slow to respond. He feels weakness, numbness and tingling of the LUE as well as LLE. is at bedside and reports that he is repeating himself and seems still slightly confused. Patient is active at home. Denies history of exertional chest discomfort or dyspnea. He has no known history of cardiac disease. He does have a family history of premature CAD in his mother as well as maternal grandmother with MIs in their 40's. Patient has no additional cardiac risk factors. He was recently on Sertraline which was discontinued appx 1 month ago by taper. Recent maxillary tooth infection for which he took PCN. No additional complaints at this time. In the ER patient afebrile, HD stable. ER Course: Nitro 0.4mg SL, ASA 324mg Admission Exam Per Admitting Provider General: patient appears tired, NAD, non-toxic in appearance, AA&O x 4 Skin: warm, dry, intact, no rashes or lesions HEENT: NC/AT, PERRL, EOMI, anicteric sclera, conjunctiva without injection, external ear normal to inspection and nontender, nares patent, moist mucus membranes, dentition intact, no oropharyngeal lesions, neck supple, trachea midline, no LAD, no thyromegaly, no JVD Heart: +S1/S2, regular, no m/r/g, +tenderness with palpation of left chest wall, ribs, +tenderness with palpation of left occipital musculature, parasp inals, trapezius and left arm Lungs: equal air entry bilaterally, no rales/rhonchi/wheezes Abd: +BS, soft, NT/ND, no masses/organomegaly/ascites Ext: warm, 2+ pulses in UE/LE bilaterally, no clubbing/cyanosis or edema Neuro: AA&O x 4, speech clear and appropriate, no facial droop, CN II-XII intact with exception of diminished hearing in left ear, sensation to light touch diminished in LUE, LLE, MS 4/5 in LUE/LLE, 5/5 in RUE/RLE Principal Diagnosis (1) Stroke-like symptoms: (2) Left-sided weakness: (3) Seizure-like activity: (4) Anxiety Discharge Exam General- No acute distress Head- atraumatic Eyes- PERRL, EOMI, ENT- oropharynx clear Neck- supple, no JVD Lungs- clear to auscultation Heart- regular rhythm; no murmur Abdomen- normal bowel sounds, soft, nontender Extremities- no calf tenderness, able to lift LUE with strength improves Neuro- alert, oriented x 3; PERRL, EOMI; no facial palsy; no dysarthria Skin- warm & dry Discharge Data Allergies Allergy/AdvReac Type Severity Reaction Status Date / Time No Known Allergies Allergy Unverified 01/11/13 09:38 Consultations 11/10/21 04:55 ED Decision to Admit Stat 11/10/21 07:59 Consult Neurology Routine 11/10/21 10:38 Consult Cardiology Routine Ordered Studies 11/10/21 03:16 CT head/brain wo con Urgent 11/10/21 05:32 CT angio head w con Urgent CT angio neck with con Urgent 11/10/21 10:02 CT angio chest dissec wo/w con Urgent 11/10/21 10:04 MR brain wo/w con Urgent 11/11/21 17:45 CT head/brain wo con Stat 11/12/21 08:59 MR cervical spine wo con Routine 11/12/21 09:15 MR brain seizure wo/w con Routine Brain MRI WITH AND WITHOUT CONTRAST HISTORY: left arm weakness, h/o seizure like episode TECHNIQUE: Multiplanar multisequence MRI of the brain was performed both before and after the intravenous administration of contrast. COMPARISON STUDY: Head CT 11/11/2021. Brain MRI 11/10/2021. FINDINGS: There are no areas of restricted diffusion to suggest acute infarction. The midline structures are intact. The paranasal sinuses are clear. The mastoid air cells are clear. The ventricles and sulci are within normal limits for age. There is no mass, hematoma, midline shift. The major vascular flow-voids at the skull base are well maintained. Postcontrast sequences show no areas of abnormal enhancement. IMPRESSION: No acute intracranial abnormality. ACT 112: Negative or not required by law. Electronically signed by: tSanley Fontaine M.D. 11/12/2021 2:19 PM Dictated:11/12/21 1338 Transcribed: 11/12/21 1338 CERVICAL SPINE MRI HISTORY: left arm weakness TECHNIQUE: Multiplanar multisequence MRI of the cervical spine was performed without the use of contrast. COMPARISON STUDY: None. FINDINGS: No fracture or subluxation within the cervical spine. Disc spaces are preserved. Prevertebral soft tissues and the C1-C2 interval are intact. The visualized posterior fossa is unremarkable. The cervical spinal cord is normal in course, caliber, and signal intensity. C2-C3: No significant central canal or neural foraminal narrowing. C3-C4: No significant central canal or neural foraminal narrowing. C4-C5: Mild bilateral neural foraminal narrowing due to the uncovertebral hypertrophy. No disc herniations. No significant central canal narrowing. C5-C6: Mild right and moderate to severe left neural foraminal narrowing due to the uncovertebral hypertrophy. No significant central canal narrowing. C6-C7: No significant central canal or neural foraminal narrowing. C7-T1: No significant central canal or neural foraminal narrowing. IMPRESSION: 1. No fracture or subluxation. 2. No disc herniations. No significant central canal or neural foraminal narrowing. 3. Bilateral neural foraminal narrowing within the lower cervical spine as described above most pronounced within the left C5-C6 level. ACT 112: Negative or not required by law. Electronically signed by: Stanley Fontaine M.D. 11/12/2021 1:21 PM Dictated:11/12/211315 Transcribed: 11/12/211315 CT head/brain wo con CLINICAL HISTORY: stroke like symptoms (RUE weakness) Technique: Contiguous axial CT images of the head were acquired from the base of the skull to the vertex without intravenous contrast administration. Images were viewed in brain, subdural and bone windows. Automated dose lowering techniques and/or adjustment according to patient size were utilized for this exam. Comparison: Comparison is made to CTA head 11/10/2021 Findings: The ventricles, basal cisterns, and cerebral sulci are normal. There is no acute intracranial hemorrhage or evidence of acute territorial infarction. Neither mass effect, shift of the midline structures, nor abnormal extra-axial fluid collections are shown. Imaged portions of the paranasal sinuses and mastoid air cells are clear. The orbits appear normal. There are no acute fractures of the calvaria or scalp swelling. Impression: No acute intracranial hemorrhage, no evidence of acute territorial infarction or other acute intracranial disease process. ACT 112: Negative or not required by law. Electronically signed by: Fidencio Jose M.D. 11/11/2021 6:13 PM Dictated:11/11/211811 Transcribed: 11/11/211811 MR brain wo/w con HISTORY: 41 years-old Male stroke/seizure like symptoms with acute chest pain. Acute headache with slurred speech. COMPARISON: CT head, CTA head and neck 11/10/2021. TECHNIQUE: Multiplanar and multisequence MRI of the brain was obtained both with and without the use of 11.5 cc Gadavist. FINDINGS: Race Steward localizer images demonstrate no gross extracranial abnormality. No restricted diffusion to suggest acute or subacute infarct. Partially empty sella. The midline structures are otherwise unremarkable. No acute intracranial hemorrhage, midline shift, abnormal extra-axial collection, hydrocephalus or intracranial mass. No pathologic blooming artifact. There are no significant T2/FLAIR signal abnormalities identified within the brain parenchyma. The mesial temporal lobes appear normal. No evidence of mesial temporal sclerosis, cortical dysplasia, triplett matter heterotopia or acute seizure focus. There is no abnormal intra-axial or extra-axial enhancement identified. Cerebral venous sinuses and major arterial flow voids appear patent. Mastoid air cells are clear. Minimal mucosal thickening of the paranasal sinuses. The skull, orbits and soft tissues are unremarkable. IMPRESSION: 1. No acute intracranial abnormality. No acute or subacute infarct. 2. No abnormal enhancement. ACT 112: Negative or not required by law. The above report was generated using voice recognition software. It may contain grammatical, syntax or spelling errors. Dictated: 11/11/2021 7:02 AM Transcribed: 11/11/2021 7:27 AM Bren [id number] Electronically signed by: Charles Monterroso M.D. 11/11/2021 8:25 AM Dictated:11/11/21701 Transcribed: 11/11/21726 CT angio chest dissec wo/w con CLINICAL HISTORY: chest pain with stroke/seizure like symptoms TECHNIQUE: Multidetector row helical CT of the chest was performed before and after injection of IV contrast. Coronal and sagittal reformations were obtained. Automated dose lowering techniques and/or adjustment according to patient size were utilized for this exam. CT DOSE: 1338.29 mGy.cm Comparison: None available at the time of this dictation. FINDINGS: Lungs and pleura: Normal. Heart and pericardium: There is mild cardiomegaly without evidence of pericardial effusion. Vessels: No aortic dissection is seen. Mediastinum and rubens: Unremarkable. Chest wall and lower neck: Unremarkable. Abdomen: Hepatic steatosis is noted. Bones: Unremarkable. IMPRESSION: No acute abnormality and in particular no evidence of acute aortic injury. ACT 112: Negative or not required by law. Electronically signed by: Fidencio Jose M.D. 11/10/2021 12:47 PM Dictated:11/10/21 1244 Transcribed: 11/10/21 1244 HEAD & NECK CTA HISTORY: left sided weakness TECHNIQUE: Multiaxial CT images of the head were performed following the intravenous administration of contrast to evaluate the major cerebral vessels. Multiaxial CT images of the neck were also performed following the intravenous administration of contrast to evaluate the major cervical vessels. Maximum intensity projection images were also obtained. A dose lowering technique was utilized adhering to the principles of ALARA. COMPARISON: Head CT 11/10/2021. FINDINGS: There is no mass, hematoma, midline shift, or acute infarct. Visualized intracranial internal carotid arteries, distal vertebral arteries, and basilar artery are widely patent. There is no significant stenosis, occlusion, or aneurysm seen within the bilateral ACAs, MCAs, or behavioral intervention specialist. The major dural venous sinuses are patent. The aortic arch and proximal great vessels are widely patent. There is no significant stenosis, occlusion, or dissection identified within the bilateral common carotid, internal carotid, or vertebral arteries. IMPRESSION: 1. No significant stenosis, occlusion, or aneurysm within the [place]. 2. No significant stenosis, occlusion, or dissection identified within the carotid or vertebral arteries. ACT 112: Negative or not required by law. Electronically signed by: Stanley Fontaine M.D. 11/10/2021 7:12 AM Dictated:11/10/21 0707 Transcribed: 11/10/21706 HEAD & NECK CTA HISTORY: left sided weakness TECHNIQUE: Multiaxial CT images of the head were performed following the intravenous administration of contrast to evaluate the major cerebral vessels. Multiaxial CT images of the neck were also performed following the intravenous administration of contrast to evaluate the major cervical vessels. Maximum intensity projection images were also obtained. A dose lowering technique was utilized adhering to the principles of ALARA. COMPARISON: Head CT 11/10/2021. FINDINGS: There is no mass, hematoma, midline shift, or acute infarct. Visualized intracranial internal carotid arteries, distal vertebral arteries, and basilar artery are widely patent. There is no significant stenosis, occlusion, or aneurysm seen within the bilateral ACAs, MCAs, or behavioral intervention specialist. The major dural venous sinuses are patent. The aortic arch and proximal great vessels are widely patent. There is no significant stenosis, occlusion, or dissection identified within the bilateral common carotid, internal carotid, or vertebral arteries. IMPRESSION: 1. No significant stenosis, occlusion, or aneurysm within the [place]. 2. No significant stenosis, occlusion, or dissection identified within the carotid or vertebral arteries. ACT 112: Negative or not required by law. Electronically signed by: Stanley Fontaine M.D. 11/10/2021 7:12 AM Dictated:11/10/2107 Transcribed: 11/10/[address]AST CT DOSE: 614.27 mGy.cm HISTORY: seizure TECHNIQUE: Multiaxial CT images of the head were performed without the use of intravenous contrast. Automated exposure control was utilized for this study. A dose lowering technique was utilized adhering to the principles of ALARA. Comparison: None. Findings: The paranasal sinuses and mastoid air cells are clear. The calvarium and skull base are intact. The ventricles and sulci are within normal limits. There is no mass, hematoma, midline shift, or acute infarct. Impression: No acute intracranial abnormality. ACT 112: Negative or not required by law. Electronically signed by: Stanley Fontaine M.D. 11/10/2021 7:07 AM Dictated:11/10/21704 Transcribed: 11/10/21704 XR chest 1V portable CLINICAL HISTORY: Atypical chest pain TECHNIQUE: Single frontal radiograph of the chest was obtained. Comparison: None available at the time of this dictation. FINDINGS: No lines and tubes are seen. The cardiomediastinal silhouette is normal. Lungs are underinflated but clear. No evidence of pleural effusion or pneumothorax. IMPRESSION: No acute chest disease. ACT 112: Negative or not required by law. Electronically signed by: Fidencio Jose M.D. 11/10/2021 9:04 AM Dictated:11/10/21902 Transcribed: 11/10/21902 Hospital Course (1) Stroke-like symptoms: (2) Left-sided weakness: (3) Seizure-like activity: 41-year-old male present with seizure-like episode or strokelike episode. Symptoms might be related to increase level of stress or lack of sleep CT head showed no acute intracranial abnormality. CTA head and neck showed no significant stenosis, occlusion, or aneurysm within the [place]. MRI head showed No acute intracranial abnormality. No acute or subacute infarct. repeat MRI head today showed no acute intracranial abnormality MRI cervical showed C5-C6: Mild right and moderate to severe left neural foraminal narrowing due to the uncovertebral hypertrophy. Neuro on board recommended to continue aspirin 81mg No treatment with anticonvulsant since this is his first ever seizure-like episode that may have been provoked by stressors and sleep deprivation as per Neuro Since we are not 100% sure that pt had a seizure, we will encourage him not to drive for now until follow up appointment with PCP Continue PT/OT eval MRI cervical finding discussed with spine ortho Dr. Pfeiffer that reviewed the imaging Dr. Pfeiffer said that the MRI cervical finding is benign and that will not cause the degree severity of the weakness that he presented Neuro recommended outpatient EMG/nerve conduction study of the left upper extremity to further assess for radiculopathy. Neuro recommended no need to continue the aspirin on discharge Pt agreed to go to inpatient rehab to continue PT/OT Follow up with neuro in 2 to 3 weeks outpatient Fall precaution Chest pain EKG showed no ischemic changes Troponin negative ECHO showed no wall motion abnormality with EF 60-65% CTA chest negative No further cardiac testing as per cardiology Resolved Anxiety Pt is under alot of stress at work He was on Zoloft 25mg that he stopped about 2 months ago Consider neuropsych eval if continues to have nonspecific stroke like symptoms DVT px on SCD CODE status full code Disposition Discharge to [facility] today Total Time Total Time Spent Total Time Spent (In Minutes): 40 minutes Discharge Plan Discharge Items Patient Disposition: Transfer Inpatient Rehab Fac Reason For Visit: LEFT SIDED WEAKNESS, CHEST PAIN Discharge Diagnosis: (1) Stroke-like symptoms: (2) Left-sided weakness: (3) Seizure-like activity: (4) Anxiety Activity: Resume your previous activity Non-emergency contact: Primary Care Provider and Neurologist Call non-emergency contact if: you have any medication questions Follow-up/Referrals: Donna John, [Primary Care Provider] - Diet: Regular Addtl Attending Provider Instructions: Follow up with your primary care provider once discharge from rehab Follow up with Neurology Dr. Malik in 2 to 3 weeks Continue physical and occupational therapy No driving or operate any machine until reevaluate by neurology or your provider You will need to get an outpatient EMG/nerve conduction study of the left upper extremity to further assess for radiculopathy. (Your provider or neurology will place the referral) Seek medical attention if your symptoms worsening and consider neuropsychiatry evaluation Fall precaution Pending Studies at Discharge: No Stand-Alone Forms: My [facility] [place] [employer] Skilled Items Patient informed of condition?: Yes DNR: No Discharge Level of Care: Acute rehab Communicable Disease: No Discharge Prognosis: Stable Lines: None Urinary Catheter: No Medications and DC Order Prescriptions: Continued None (Patient States No Home Meds) . Qty: 0 RF: 0 Discharge Orders: Discharge Order (Routine); Ordered 11/13/21 Ordered By: Jack Miller Admission Data Admit Date/Time: 11/12/21 16:33 Attending Provider: Jack Miller Admit Provider: Fouzia Harmon Primary Care Provider: Donna John Other Providers: Fouzia Harmon ; Nawaf Neff ; Ulysses Knight ; Leif Alvarez ; Saqib Casas ; Reji John ; Clint Kirkpatrick. ; Raji Estrada ; Eleanor Chau ; Alexandrea Bonilla ; Lynn Garnica. ; Stewart Mcdermott ; Alber Mojica. ; [facility]
== END 2021-11-13 16:08 | DRG 57 ==
LOC: 2S 03:06 → ED 03:06 → SUATTDRO 05:32 → 2S 06:15